=== PATIENT | male | born 1950 | race African-American/Black ===

== ENCOUNTER 2017-06-26 02:53 | Inpatient (IN) | payer MEDICARE, OTHER ==
[2017-06-26 04:02] LABS: #Eosinphils 0.1 thou/uL (0.0-0.7); #Lymphocytes 1.2 thou/uL (1.20-3.40); #Monocytes 0.5 thou/uL (0.11-0.59); #Neutrophils 5.2 thou/uL (1.40-6.50); %Basophils 0.2 % (0.0-1.0); %Eosinophils 1.1 % (0.0-10.0); %Lymphocytes 17.6 % (21.0-51.0); %Monocytes 6.9 % (0.0-10.0); %Neutrophils 74.2 % (42.0-75.0); Hemoglobin 7.7 g/dL (14.0-18.0); Mean Corpuscular HGB CONC 33.3 g/dL (32.0-36.0); Mean Corpuscular Hemoglobin 27.7 pg (27.0-31.0); Mean Corpuscular Volume 83.4 fl (80.0-94.0); Mean Platelet Volume 6.2 fL (7.4-10.4); Platelet Count 260 thou/uL (130-400); RBC Distribution Width 11.8 % (11.5-14.5); Red Blood Cell (RBC) Count 2.78 mill/uL (4.70-6.10)
[2017-06-26 04:10] LABS: INR-International Normal Ratio 1.2; PTT 28.8 SEC (22.9-36.1); Prothrombin Time 15.5 SEC (12.0-14.7)
[2017-06-26 04:24] LABS: ALT (SGPT) 17 U/L (8-55); AST (SGOT) 25 U/L (5-34); Albumin 2.8 g/dL (3.4-4.8); Alkaline Phosphatase 34 U/L (40-150); Anion Gap 12 mmol/L (10-20); BUN (Urea Nitrogen) 36 mg/dL (8.4-25.7); Bilirubin, Total 0.3 mg/dL (0.2-1.2); Calc. Creatinine Clearance 0 mL/min (70-130); Calcium 8.5 mg/dL (7.8-10.44); Carbon Dioxide 25 mmol/L (23-31); Chloride 106 mmol/L (98-107); Estimated GFR-MDRD 58; Globulin 2.6 g/dL (2.4-3.5); Glucose 182 mg/dL (80-115); Potassium 4.2 mmol/L (3.5-5.1); Protein, Total 5.4 g/dL (5.8-8.1); Sodium 139 mmol/L (136-145)
[2017-06-26] MEDS ORDERED: Lidocaine 1% w/Epinephrine 1:100K 20 ML VIAL ONE (04:45)
[2017-06-26 05:27] LABS: CKMB 2.2 ng/mL (0-6.6); Troponin I 0.025 ng/mL (< 0.028)
[2017-06-26] MEDS ORDERED: Ondansetron ODT 4 MG TAB SL PRN (06:55)
[2017-06-26] MEDS ORDERED: Acetaminophen 325 MG TAB PO PRN ×2 (06:55→07:10)
[2017-06-26] MEDS ORDERED: Ondansetron HCl/PF 4 MG/2 ML Vial IVP PRN ×2 (06:55→07:10)
[2017-06-26] MEDS ORDERED: traMADol HCl 50 MG TAB PO PRN (07:10)
[2017-06-26] MEDS ORDERED: Benzonatate 100 MG CAP PO PRN (07:10)
[2017-06-26] MEDS ORDERED: Dextrose 50% Abboject 50 ML SYRINGE SLOW IVP PRN (07:10)
[2017-06-26] MEDS ORDERED: Senokot 8.6 MG TAB PO PRN ×2 (07:10)
[2017-06-26] MEDS ORDERED: Bisacodyl 5 MG TAB PO PRN ×2 (07:10)
[2017-06-26] MEDS ORDERED: Mag-Al 1200 mg/1200 mg/30 ML UDCUP PO PRN (07:10)
[2017-06-26] MEDS ORDERED: Calcium Carbonate 500 MG ChewTAB PO PRN (07:10)
[2017-06-26] MEDS ORDERED: HumaLOG 300 UNITS/3 ML VIAL SC PRN (07:10)
[2017-06-26] MEDS ORDERED: Loratadine 10 MG TAB PO PRN (07:10)
[2017-06-26] MEDS ORDERED: Diabetic Tussin 200 MG/10 ML UDCUP PO PRN (07:10)
[2017-06-26] MEDS ORDERED: Nitroglycerin 0.4 MG TAB (25 Tab Bottle) SL PRN (07:10)
[2017-06-26] MEDS ORDERED: Dextrose 5% in Water 1,000 ML IV PRN (07:10)
[2017-06-26] MEDS ORDERED: Sodium Chloride 0.9% 1,000 ML IV SCH (07:15)
[2017-06-26 07:36] LABS: Troponin I 0.027 ng/mL (< 0.028)
--- NOTE | 2017-06-26 08:34 | CT ---
PRELIMINARY REPORT/[facility]/EMERGENTY AFTER-HOURS PROCEDURE CT Cervical Spine Without Intravenous Contrast CLINICAL HISTORY: 67 years old, male; Injury or trauma; Fall; Initial encounter; Concussion /head injury; Patient HX: E ms reports patient called due to bleeding from mouth. Pt was evasive in saying how he was bleeding fr om the mouth. Pt then said he possibly fell. Ems reports "copious amount of blood loss". Filled o f milk jug full. Pt then says he fell 3 days ago. Pt denies bleeding disorder/blood thinner. Unk loc. Hypotensive(94/50) for ems. Pt has syncopal episode for ems. Loc for about 1.5 min. 167 dstick. Pt d rowsy-ems reports took klonopin. TECHNIQUE: Axial computed tomography images of the cervical spine without intravenous contrast. Coronal reformat maral images were created and reviewed. COMPARISON: No relevant prior studies available. FINDINGS: On axial CT images, no definite acute fracture is visible. Sagittal and coronal reconstructions show no fracture or subluxation. Mild to moderate degenerative disc changes and facet joint arthritis at multiple levels. No definite/ significant disc herniation by CT, MRI could be more sensitive if clinically indicated. IMPRESSION: No definite acute fracture or subluxation by CT. Other findings discussed above. Thank you for allowing us to participate in the care of your patient. Dictated and Authenticated by: Andre Shah MD 06/26/2017 4:11 AM Central Time ([place] & [place]) FINAL REPORT CT CERVICAL SPINE: HISTORY: Fall, neck pain. FINDINGS: Final report. Preliminary exam was performed by [facility]. I concur with the dictation from [facility]. CT images cervical spine demonstrate disk space height loss with anterior and posterior osteophytes involving the entire cervical spine. No evidence of acute cervical spine fracture is seen. The central canal is patent. IMPRESSION: No evidence of acute cervical spine pathology. No significant evidence of subluxation seen. POS: [facility]
--- NOTE | 2017-06-26 08:52 | CT ---
PRELIMINARY REPORT/[facility]/EMERGENTY AFTER-HOURS PROCEDURE CT Head Without Intravenous Contrast CLINICAL HISTORY: 67 years old, male; Injury or trauma; Fall; Initial encounter; Concussion / head injury; Patient HX: Ems reports patient called due to bleeding from mouth. Pt was evasive in saying how he was bleeding f rom the mouth. Pt then said he possibly fell. Ems reports "copious amount of blood loss". Filled 1/2 of milk jug full. Pt then says he fell 3 days ago. Pt denies bleeding disorder/blood thinn er. Unk loc. Hypotensive(94/50) for ems. Pt has syncopal episode for ems. Loc for about 1.5 min. 167 dstick. Pt drowsy-ems reports took klonopin. TECHNIQUE: Axial computed tomography images of the head/brain without intravenous contrast. COMPARISON: No relevant prior studies available. FINDINGS: No definite acute skull fracture. Included paranasal sinuses are essentially clear. No acute intracranial hemorrhage or mass effect. Ventricle size is normal for age. Vascular calcifications noted in the internal carotid and vertebral basilar systems. There is decreased attenuation in the periventricular white matter, likely from microvascular disease . There are small old lacunar infarcts in the right basal ganglia region. Additional old infarct in the high right posterior parietal/occipital region. No definite acute infarct by CT. MRI could be more sensitive/specific for an acute infarct if clinically indicated. IMPRESSION: No acute intracranial bleed or mass effect. Changes of microvascular disease, and old infarcts, details above. No definite acute infarct by CT, see above. Thank you for allowing us to participate in the care of your patient. Dictated and Authenticated by: Andre Shah MD 06/26/2017 4:08 AM Central Time ([place] & [place]) FINAL REPORT CT BRAIN: HISTORY: Trauma. History of fall. FINDINGS: Noncontrast-enhanced CT images brain obtained. Comparison is made to a previous exam from 05/06/16. Final report. Preliminary exam was performed by [facility]. CT images brain demonstrate no evidence of acute intracranial masses, hemorrhages, strokes, or contus ions. Deep white matter ischemic change is seen. Areas of old infarction seen in the right parietal lobe. IMPRESSION: No evidence of acute intracranial pathology is seen. POS: [facility]
[2017-06-26] MEDS: HumaLOG 300 UNITS/3 ML VIAL SC PRN ×2 (09:13→12:06)
[2017-06-26 10:24] LABS: Hemoglobin 7.5 g/dL (14.0-18.0)
[2017-06-26 10:40] LABS: Bilirubin Negative (Negative); Blood, Urine Negative (Negative); Clarity CLEAR (Clear); Glucose, Urine (Dipstick) Negative (Negative); Leukocyte Small (Negative); Nitrite Positive (Negative); Protein, Urine (Dipstick) 100 mg/dL (Neg-Trace); Specific Gravity, Urine 1.021 (1.002-1.036); Urobilinogen 0.2 mg/dL (0.2-1.0); pH, Urine 5.5 (5.0-9.0)
[2017-06-26 10:41] LABS: Hyaline Casts/LPF 0-3 HYALINE CAST LPF (0-3 Hyaline); Pathc Cast-AUWi Flag 0.29 (0-2.49); RBC/HPF 0-3 HPF (0-3); Squamous Epithelial None Seen HPF (0-3)
[2017-06-26 10:43] LABS: Amphetamine Not Detected (NotDetected); Benzodiazepine Screen Not Detected (NotDetected); Cocaine Metabolite Screen Detected (NotDetected); Medtox Reader # READER 1; Methamphetamine Not Detected (NotDetected); Opiate Screen Not Detected (NotDetected); Phencyclidine (PCP) Not Detected (NotDetected); THC/Cannabinoid Screen Not Detected (NotDetected); Tricyclic Screen Not Detected (NotDetected)
[2017-06-26 10:44] LABS: Barbiturates Screen Not Detected (NotDetected); Medtox Control Line Valid? VALID (VALID); Methadone Not Detected (NotDetected); Oxycodone Screen Not Detected (NotDetected)
[2017-06-26 10:47] LABS: Troponin I 0.018 ng/mL (< 0.028)
--- NOTE | 2017-06-26 10:54 | HP ---
DATE OF ADMISSION: 06/26/2017 PRIMARY CARE PHYSICIAN: Jay Lane D.O. CHIEF COMPLAINT: Fall and bleeding. HISTORY OF PRESENTING ILLNESS: Mr. Andrews is a 67-year-old -Monegasque male with past medical h istory of diabetes and hypertension as well as chronic hepatitis C and chronic kidney disease who pre sented to the emergency room with above-mentioned complaint. History is mainly obtained by the patie bhanu himself, who was somewhat of a poor historian. Electronic medical records have been reviewed. The patient was last admitted to our facility in April 2016 after a syncopal episode and had kevon p including carotid Doppler ultrasound, transthoracic echocardiogram, and MRI of the brain. All of t his workup was unremarkable. At that time, he was taken off of his atenolol due to excessive beta bl ockade. Last night, he was brought in by EMS. He apparently had fallen down at home and was unable to get up for quite a long time and started to bleed heavily from the right bottom lip. Eventually, when he c alled EMS, he has lost a lot of blood. He was brought into the emergency room and was hemodynamicall y stable. He required suturing of his lip and then he stopped bleeding. His hemoglobin was found to be 7.7, which is down from 11.6 last year. He was very sleepy as he told the emergency room physici an that he has taken some Klonopin at home. He was not able to corroborate most of this story. He r eports that he has no real memory of the events that happened yesterday. When I asked if he has passed out, he said yes, but he said that he passed out when the EMS was there . He does not really remember how did he fall or if he had any syncopal episode prior to falling. O therwise, he denies any other recent illnesses. He did have one glass of alcoholic drink yesterday b efore all of this happened. He denies any drug abuse. In the emergency room, he underwent a CT scan of the brain and cervical spine and both were unremarka ble for any acute changes. His lab work was essentially unremarkable except for anemia. He is now b eing admitted for further evaluation and workup for syncopal episode. At the time of my evaluation, he is awake, alert, oriented x3, and is actually making jokes with me. PAST MEDICAL HISTORY: 1. Diabetes mellitus type 2. 2. Hypertension. 3. History of hepatitis. 4. Chronic hepatitis C. 5. Chronic kidney disease. PAST SURGICAL HISTORY: Cataract removal bilaterally. ALLERGIES: No known medication allergies. FAMILY HISTORY: Significant for kidney disease and diabetes. SOCIAL HISTORY: He lives alone and is able to take care of himself. His meals are being delivered b y [employer] and he has some help at home with the [employer]. He denies any drug abuse and d rinks alcohol minimally and he smokes cigarettes intermittently. MEDICATIONS: Unable to update. The patient reports compliance. REVIEW OF SYSTEMS: The following complete review of systems was negative, unless otherwise mentioned in the HPI or below: Constitutional: Weight loss or gain, ability to conduct usual activities. Skin: Rash, itching. Eyes: Double vision, pain. ENT/Mouth: Nose bleeding, neck stiffness, pain, tenderness. Cardiovascular: Palpitations, dyspnea on exertion, orthopnea. Respiratory: Shortness of breath, wheezing, cough, hemoptysis, fever or night sweats. Gastrointestinal: Poor appetite, abdominal pain, heartburn, nausea, vomiting, constipation, or diarr hea. Genitourinary: Urgency, frequency, dysuria, nocturia. Musculoskeletal: Pain, swelling. Neurologic/Psychiatric: Anxiety, depression. Allergy/Immunologic: Skin rash, bleeding tendency. It is negative except for those mentioned in the history and physical. PHYSICAL EXAMINATION: VITAL SIGNS: Upon presentation, heart rate 75, respirations 16, temperature 98.5, saturating 94% on room air, and blood pressure 112/63. GENERAL: No acute distress. He is awake, alert, and oriented x3. He does appear ill kempt, but wel l nourished. He has dried blood all over his hands and his upper body. HEENT: Mucous membrane is moist and pink. No oropharyngeal exudate or erythema. Head is normocepha lic, atraumatic. Pupils are equal, reactive to light and accommodation. Extraocular movement is int act. NECK: Supple without any lymphadenopathy, JVD or bruit. CHEST: Clear to auscultation without any wheezing, rales or rhonchi. CARDIOVASCULAR: Rhythm is regular without any murmur, rubs or gallops. ABDOMEN: Soft, nontender, nondistended with positive bowel sounds. EXTREMITIES: Free of any cyanosis, clubbing, or edema. NEUROLOGIC: Examination is nonfocal. SKIN: Free of any rashes or bruises. I feel warm and dry to touch. PSYCHIATRIC: Normal affect. IMAGING DATA AND LABORATORY DATA: A 12-lead EKG by my review shows frequent PACs with sinus rhythm a t 78 beats per minute, prolonged QT interval. CT scan of the brain by my review has no evidence to s uggest any hemorrhage or infarction. CT scan of the cervical spine is unremarkable for any acute fra ctures. CBC shows hemoglobin 7.7 with repeat hemoglobin of 7.5. Coagulation studies are unremarkabl e. Serum chemistry showed BUN of 36, creatinine of 1.46 with estimated GFR of 58, which seems to be at baseline with blood sugar of 182. Troponins then trended and are negative so far x2. Plasma alco hol level less than 10. Urine drug screen and urinalysis is pending as ordered by myself. IMPRESSION AND PLAN: 1. Acute blood loss anemia. The patient is quite anemic and seems to have lost a lot of blood. He is however at this time hemodynamically stable. He was hypotensive upon presentation, but his curren t blood pressure is 127/61. At this time, we will hold off on the transfusion and continue to monito r hemoglobin and hematocrit every 6 hours or so. If it is less than 7, we will start transfusing. Richmond mann is not on any blood thinners and the reason of the bleeding was a fall. This has been stopped by t cas suturing of his lip. 2. Possible syncope. It is unclear if he actually lost consciousness or not. He has had thorough w orkup done one year ago. At this time, we will start him on some gentle IV fluid hydration and check orthostatics and monitor his rhythm on the telemetry monitoring. He does have some history of PVCs. Also check drug screen as above. No clear etiology of his syncope is noticed. His carotid Doppler ultrasound as well as transthoracic echocardiogram done on 04/2016 was within normal limit. 3. Diabetes mellitus. We will start him on insulin sliding scale and try to confirm his home medica tions. Diabetic diet as required. 4. History of hypertension. His home medications are not reconciled as of now. We will try to rest art them if his blood pressure supports. Use p.r.n. antihypertensives for now. 5. History of chronic hepatitis C. The patient does not have any followup done, but his liver enzym es are unremarkable at this time. He does not seem to have any hemodynamic instability because of th is. This can be followed in the outpatient setting. 5. Code status: FULL CODE. DISPOSITION: Mr. Andrews is currently being admitted for acute blood loss anemia and workup for synco pe. Further management will depend upon his clinical course. Estimated length of stay is at least 2 -3 midnights.
[2017-06-26 11:06] LABS: Yeast-AUWi Flag 25.4 (0-25.0)
[2017-06-26 11:14] LABS: Bacteria/HPF Rare-Few HPF (None Seen); Yeast-All Forms None Seen HPF (None Seen)
[2017-06-26 15:28] LABS: Hemoglobin 7.2 g/dL (14.0-18.0)
[2017-06-26] MEDS: hydrALAZINE 20 MG/ML VIAL SLOW IVP PRN (16:56)
[2017-06-26] MEDS ORDERED: Carvedilol 25 MG TAB PO SCH (18:45)
[2017-06-26] MEDS: metFORMIN 500 MG TAB PO SCH (18:51)
[2017-06-26] MEDS: Lisinopril 10 MG TAB PO SCH (21:42)
[2017-06-27 05:35] LABS: Anion Gap 11 mmol/L (10-20); BUN (Urea Nitrogen) 38 mg/dL (8.4-25.7); Calc. Creatinine Clearance 0 mL/min (70-130); Calcium 8.4 mg/dL (7.8-10.44); Carbon Dioxide 22 mmol/L (23-31); Chloride 110 mmol/L (98-107); Estimated GFR-MDRD 71; Glucose 93 mg/dL (80-115); Potassium 3.7 mmol/L (3.5-5.1); Sodium 139 mmol/L (136-145)
[2017-06-27 06:14] LABS: Eosinophils 3 % (0-10); Hemoglobin 7.9 g/dL (14.0-18.0); Lymphocytes 29 % (21-51); MDiff Complete? YES; Mean Corpuscular HGB CONC 33.6 g/dL (32.0-36.0); Mean Corpuscular Hemoglobin 28.7 pg (27.0-31.0); Mean Corpuscular Volume 85.4 fl (80.0-94.0); Mean Platelet Volume 6.8 fL (7.4-10.4); Monocytes 9 % (0-10); Neutrophil 58 % (42-75); Platelet Count 245 thou/uL (130-400); RBC Distribution Width 12.1 % (11.5-14.5); Reactive Lymphocytes 1 % (0-10); Red Blood Cell (RBC) Count 2.75 mill/uL (4.70-6.10); White Blood Cell (WBC) Count 7.3 thou/uL (4.8-10.8)
[2017-06-27] MEDS ORDERED: cefTRIAXone\\ROCEPHIN 1 GM in Sodium Chloride 0.9% 100 ML IVPB SCH (07:45)
[2017-06-27] MEDS: Carvedilol 25 MG TAB PO SCH ×2 (09:03→21:22)
[2017-06-27] MEDS: Lisinopril 10 MG TAB PO SCH ×2 (09:03→21:20)
[2017-06-27] MEDS: metFORMIN 500 MG TAB PO SCH ×2 (09:03→17:02)
[2017-06-27] MEDS: cefTRIAXone\\ROCEPHIN 1 GM, Syringe 0.4 ML in Sterile Water 9.6 ML SLOW IVP SCH (10:20)
--- NOTE | 2017-06-27 11:32 | PDOC.PN ---
- Subjective Encounter Start Date: 06/27/17 Encounter Start Time: 11:30 Subjective: feels much better today.walked w PT.somewhat dizzy w ambulation -: no CP/palpitations/muscle weakness - Objective MAR Reviewed: Yes Vital Signs & Weight: Vital Signs (12 hours) Temp Pulse Resp BP BP BP Pulse Ox 06/27/17 09:00 98.4 F 77 16 182/81 H 97 06/27/17 04:00 98.5 F 81 18 169/83 H 96 06/27/17 00:00 99.1 F 78 18 139/66 139/66 96 Weight Weight 5.552 oz Most Recent Monitor Data Heart Rate from ECG 84 NIBP 158/74 I&O: 06/26/17 06/27/17 06/28/17 06:59 06:59 06:59 Intake Total 1723 Output Total 1175 Balance 548 Result Diagrams: 06/27/17 04:26 06/27/17 04:26 Additional Labs: Accuchecks 06/27/17 06/26/17 06/26/17 06:05 20:40 16:24 POC Glucose 113 H 167 H 123 H 06/26/17 11:36 POC Glucose 163 H Laboratory Tests 06/26/17 06/27/17 03:25 04:26 Creatinine 1.46 H 1.22 Radiology Reviewed by me: Yes EKG Reviewed by me: Yes (NSR on tele) Phys Exam - Physical Examination Constitutional: NAD HEENT: PERRLA, moist MMs, sclera anicteric, oral pharynx no lesions Neck: no nodes, no JVD, supple, full ROM Respiratory: no wheezing, no rales, no rhonchi, clear to auscultation bilateral Cardiovascular: RRR, no significant murmur Gastrointestinal: soft, non-tender, no distention, positive bowel sounds Musculoskeletal: no edema, pulses present Neurological: non-focal, normal sensation, moves all 4 limbs Psychiatric: normal affect, A&O x 3 Skin: no rash Dx/Plan (1) Acute blood loss anemia Code(s): D62 - ACUTE POSTHEMORRHAGIC ANEMIA Status: Acute Comment: s/p 1 unit PRBC 06/26/17 (2) UTI (urinary tract infection) Status: Acute (3) Orthostatic hypotension Code(s): I95.1 - ORTHOSTATIC HYPOTENSION Status: Acute (4) HTN (hypertension) Code(s): I10 - ESSENTIAL (PRIMARY) HYPERTENSION Status: Acute (5) Syncope Code(s): R55 - SYNCOPE AND COLLAPSE Status: Suspected (6) Cocaine abuse Code(s): F14.10 - COCAINE ABUSE, UNCOMPLICATED Status: Chronic (7) CKD (chronic kidney disease), stage III Status: Chronic (8) Type 2 diabetes mellitus Status: Chronic - Plan out of bed/ambulate, DVT proph w/SCDs send urine for Cx. add empiric IV ABx. -: BP was high & home meds restarted.IVF Dced -: H/H stable for now post transfusion -: discussed cocaine .harmful w use of BB.pt receptive -: bradford MARTINES home tomorrow * . Review of Systems - Review of Systems Constitutional: weakness, malaise. negative: fever, chills, sweats, other ENT: negative: Ear Pain, Ear Discharge, Nose Pain, Nose Discharge, Nose Congestion, Mouth Pain, Mouth Swelling, Throat Pain, Throat Swelling, Other Respiratory: negative: Cough, Dry, Shortness of Breath, Hemoptysis, SOB with Excertion, Pleuritic Pain, Sputum, Wheezing Cardiovascular: negative: chest pain, palpitations, orthopnea, paroxysmal nocturnal dyspnea, edema, light headedness, other Gastrointestinal: negative: Nausea, Vomiting, Abdominal Pain, Diarrhea, Constipation, Melena, Hematochezia, Other Genitourinary: negative: Dysuria, Frequency, Incontinence, Hematuria, Retention , Other Musculoskeletal: negative: Neck Pain, Shoulder Pain, Arm Pain, Back Pain, Hand Pain, Leg Pain, Foot Pain, Other Skin: negative: Rash, Lesions, Nilo, Bruising, Other Neurological: negative: Weakness, Numbness, Incoordination, Change in Speech, Confusion, Seizures, Other - Medications/Allergies Allergies/Adverse Reactions: Allergies Allergy/AdvReac Type Severity Reaction Status Date / Time No Known Allergies Allergy Verified 05/07/16 11:33 Medications: Current Medications Acetaminophen (Tylenol) 650 mg PO Q4H PRN PRN Reason: Headache/Fever or Pain Al Hydroxide/Mg Hydroxide (Maalox) 30 ml PO Q6H PRN PRN Reason: Heartburn or Indigestion Benzonatate (Tessalon) 100 mg PO Q4H PRN PRN Reason: Cough Bisacodyl (Dulcolax) 10 mg PO DAILYPRN PRN PRN Reason: Constipation Calcium Carbonate (Tums) 1,000 mg PO Q4H PRN PRN Reason: Heartburn or Indigestion Carvedilol (Coreg) 25 mg PO BID REPLACED BY [facility] Last Admin: 06/27/17 09:03 Dose: 25 mg Dextrose/Water (Dextrose 50%) 25 gm SLOW IVP PRN PRN PRN Reason: Hypoglycemia Glucagon (Glucagon) 1 mg IM PRN PRN PRN Reason: Hypoglycemia Guaifenesin (Robitussin Sf) 200 mg PO Q4H PRN PRN Reason: Cough Hydralazine HCl (Apresoline) 10 mg SLOW IVP Q4H PRN PRN Reason: Systolic BP > 170 Last Admin: 06/26/17 16:56 Dose: 10 mg Dextrose/Water (D5w) 1,000 mls @ 0 mls/hr IV .Q0M PRN; As Directed PRN Reason: Hypoglycemia Ceftriaxone Sodium 1 gm/ (Sodium Chloride) 100 mls @ 200 mls/hr IVPB Q24HR REPLACED BY [facility] Last Admin: 06/27/17 08:55 Dose: Not Given Ceftriaxone Sodium 1 gm/ (Syringe 0.4 ml/ Sterile Water) 10 mls @ 120 mls/hr SLOW IVP Q24HR REPLACED BY [facility] Last Admin: 06/27/17 10:20 Dose: 10 mls Insulin Human Lispro (Humalog) 0 units SC .MILD SLIDING SCALE PRN PRN Reason: Mild Correctional Scale Last Admin: 06/26/17 12:06 Dose: 2 unit Insulin Human Lispro (Humalog) 0 units SC .BEDTIME SLIDING SC PRN PRN Reason: Bedtime Correctional Scale Lisinopril (Zestril) 10 mg PO BID REPLACED BY [facility] Last Admin: 06/27/17 09:03 Dose: 10 mg Loratadine (Claritin) 10 mg PO DAILYPRN PRN PRN Reason: Sinus Symptoms Metformin [facility] (Glucophage) [facility] Last Admin: 06/27/17 09:03 Dose: 1,000 mg Nitroglycerin (Nitrostat) 0.4 mg SL Q5MIN PRN PRN Reason: Chest Pain Ondansetron HCl (Zofran) 4 mg IVP Q6H PRN PRN Reason: Nausea/Vomiting Senna (Senokot) 2 tab PO HSPRN PRN PRN Reason: Constipation Sodium Chloride (Flush - Normal Saline) 10 ml IVF PRN PRN PRN Reason: Saline Flush Tramadol HCl (Ultram) 50 mg PO Q4H PRN PRN Reason: Moderate Pain (4-6)
[2017-06-27] MEDS: hydrALAZINE 20 MG/ML VIAL SLOW IVP PRN (15:28)
[2017-06-28 05:46] LABS: Hemoglobin 7.9 g/dL (14.0-18.0)
[2017-06-28 05:50] VITALS: BMI 23.4
[2017-06-28] MEDS: metFORMIN 500 MG TAB PO SCH (08:19)
[2017-06-28] MEDS: Lisinopril 10 MG TAB PO SCH (08:20)
[2017-06-28] MEDS: Carvedilol 25 MG TAB PO SCH (08:20)
[2017-06-28] MEDS ORDERED: Sodium Chloride 0.9% 1,000 ML IV SCH (08:45)
[2017-06-28] MEDS: cefTRIAXone\\ROCEPHIN 1 GM, Syringe 0.4 ML in Sterile Water 9.6 ML SLOW IVP SCH (10:07)
[2017-06-28 11:38] VITALS: TEMP 97.4
--- NOTE | 2017-06-28 12:22 | DIS ---
DATE OF ADMISSION: 06/26/2017 DATE OF DISCHARGE: 06/28/2017 PRIMARY CARE PHYSICIAN: Jay Lane D.O. DISCHARGE DISPOSITION: Home. DISCHARGE DIAGNOSES: 1. Orthostatic hypotension. 2. Acute blood loss anemia secondary to fall. 3. Urinary tract infection. 4. Cocaine abuse. 5. History of chronic hepatitis C. 6. Diabetes mellitus type 2. 7. Hypertension. 8. Chronic kidney disease. PROCEDURES DONE IN THE HOSPITAL: Include CT scan of the brain and cervical spine, which are unremark able. DISCHARGE MEDICATIONS: New medication, ferrous sulfate 325 mg p.o. b.i.d., Omnicef 300 mg p.o. b.i.d . for 7 more days. NEW MEDICATIONS: Toprol-XL 25 mg at bedtime and Florastor 250 mg daily for 7 more days. DISCONTINUED MEDICATION: Atenolol twice a day. CONTINUED MEDICATIONS: Lisinopril 10 mg p.o. b.i.d., metformin 1000 mg p.o. b.i.d. Please note that the patient was given option for outpatient rehabilitation versus home health and at this time he declined both of them. HISTORY OF PRESENTING ILLNESS: Mr. Andrews is a 67-year-old -[place]ian male with history of andrea betes, hypertension, chronic kidney disease, and chronic hepatitis C who presented to emergency room after he has fallen and was bleeding and called EMS. Upon presentation, he was found to have acute b lood loss anemia. He required sutures on his lower lip where he was bleeding from. Please see admis isa history and physical for further detail. He was otherwise hemodynamically stable. HOSPITAL COURSE: The patient's hemoglobin was trended and he has significant drop in his hemoglobin from 10 to 7 and it steadily worsened slowly. Because of this, he was transfused 1 unit of packed RB Cs and started on ferrous sulfate. His bleeding has been stopped before his admission in the emergen cy room. He was found to be quite orthostatic while in the hospital. He was resuscitated with IV fluids and P RBCs. He was also found to have urinalysis consistent with UTI. Cultures were sent and were pending at the time of discharge. He was started on IV antibiotic and later changed to oral antibiotic at t he time of discharge. Because of orthostatic hypotension despite IV fluids, it was decided that he will stop his atenolol a nd was changed to Toprol-XL and he was instructed to take it towards the end of the day. He was inst ructed to not get up too quickly and was seen by physical therapy for education about the same. He w as provided with SARAH hose to wear during the daytime and take them off at nighttime. He was taught t abdirizak to combat orthostatic hypotension by sitting up and standing up slowly. He is also instruc sarah to follow with his primary care physician with regards to the follow up for all of this. Medicat ion adjustments were made as above. He was taken off of his atenolol which he takes twice a day to o nce a day Toprol XL that he is instructed to take towards the end of the day before going to bed to p revent dizziness in the daytime. He is also instructed to use urinal in bed in the middle of night a nd not get up during the night time. By the time of discharge, he is stable and eager to go home. He was seen and examined prior to disch arge. PHYSICAL EXAMINATION: VITAL SIGNS: Include temperature 98.2, pulse of 74, respirations 16, saturating 97% on room air, blo od pressure 141/66. GENERAL APPEARANCE: No acute distress, awake, alert, oriented x3. CHEST: Clear to auscultation without any wheezing, rales or rhonchi. Rhythm is regular without any murmur, rubs or gallops. The patient was counseled against cocaine abuse. He seemed receptive at this time. At this time, he will be discharged home as he has refused outpatient rehabilitation for dizzy and balance program [facility]. Total time spent 32 minutes including [id number] interaction with the patient and discussion of dis charge plan with patient and his nurse.
[2017-06-28 14:18] VITALS: BP 191/93
[2017-06-28] MEDS ORDERED: Ferrous Sulfate 325 MG TAB PO SCH (17:00)
== END 2017-06-28 13:57 | disposition home or self-care (01) | DRG 812 ==
LOC: ERS 02:53 → 2NO 05:29
PROVIDERS: ADMIT Internal Medicine; ATTEND Internal Medicine
PROC: 30233N1 Transfusion of Nonautologous Red Blood Cells into Peripheral Vein, Percutaneous Approach (ICD-10-PCS; principal; 2017-06-26)
PROC: 0HQ1XZZ Repair Face Skin, External Approach (ICD-10-PCS; 2017-06-26)
DX: D62 Acute posthemorrhagic anemia (principal); E11.22 Type 2 diabetes mellitus with diabetic chronic kidney disease; N39.0 Urinary tract infection, site not specified; B18.2 Chronic viral hepatitis C; N18.9 Chronic kidney disease, unspecified; I12.9 Hypertensive chronic kidney disease with stage 1 through stage 4 chronic kidney disease, or unspecified chronic kidney disease; R55 Syncope and collapse; I95.1 Orthostatic hypotension; F14.10 Cocaine abuse, uncomplicated; W18.30XA Fall on same level, unspecified, initial encounter; S01.511A Laceration without foreign body of lip, initial encounter
CPT/HCPCS: 12011; 36415; 36416; 36430; 70450; 72125; 80048; 80053; 80306; 80307; 81003; 81015; 82553; 84484; 85014; 85018; 85025; 85610; 85730; 86850; 86900; 86901; 87077; 87086; 87186; 93005; A4216; G8978-GP-CK; G8979-GP-CI; J0360; J0696; J2001; J7050; P9016

== ENCOUNTER 2017-06-30 03:07 | Emergency (ER) | payer MEDICARE, OTHER ==
[2017-06-30 03:37] LABS: #Eosinphils 0.3 thou/uL (0.0-0.7); #Monocytes 0.6 thou/uL (0.11-0.59); #Neutrophils 4.5 thou/uL (1.40-6.50); %Basophils 0.6 % (0.0-1.0); %Eosinophils 3.5 % (0.0-10.0); %Lymphocytes 27.6 % (21.0-51.0); %Monocytes 7.4 % (0.0-10.0); %Neutrophils 60.9 % (42.0-75.0); Hemoglobin 7.6 g/dL (14.0-18.0); Mean Corpuscular HGB CONC 32.7 g/dL (32.0-36.0); Mean Corpuscular Volume 85.4 fl (80.0-94.0); Platelet Count 289 thou/uL (130-400); RBC Distribution Width 12.6 % (11.5-14.5); Red Blood Cell (RBC) Count 2.72 mill/uL (4.70-6.10); White Blood Cell (WBC) Count 7.4 thou/uL (4.8-10.8)
== END 2017-06-30 03:51 | disposition home or self-care (01) ==
LOC: ERS 03:07
DX: S01.511D Laceration without foreign body of lip, subsequent encounter (principal); E11.9 Type 2 diabetes mellitus without complications; I10 Essential (primary) hypertension; F17.200 Nicotine dependence, unspecified, uncomplicated; Z79.84 Long term (current) use of oral hypoglycemic drugs; Z79.899 Other long term (current) drug therapy
CPT/HCPCS: 36415; 85025; 99283

== ENCOUNTER 2017-07-04 00:20 | Inpatient (IN) | payer MEDICARE, OTHER ==
[2017-07-04] MEDS ORDERED: Lidocaine 1% w/Epinephrine 1:100K 20 ML VIAL ONE (01:04)
[2017-07-04 01:57] LABS: #Basophils 0.1 thou/uL (0.0-0.2); #Eosinphils 0.2 thou/uL (0.0-0.7); #Monocytes 0.5 thou/uL (0.11-0.59); #Neutrophils 3.1 thou/uL (1.40-6.50); %Eosinophils 2.8 % (0.0-10.0); %Lymphocytes 34.5 % (21.0-51.0); %Monocytes 7.9 % (0.0-10.0); %Neutrophils 53.8 % (42.0-75.0); Hemoglobin 5.6 g/dL (14.0-18.0); Mean Corpuscular HGB CONC 33.8 g/dL (32.0-36.0); Mean Corpuscular Hemoglobin 29.2 pg (27.0-31.0); Mean Corpuscular Volume 86.3 fl (80.0-94.0); Mean Platelet Volume 6.3 fL (7.4-10.4); Platelet Count 303 thou/uL (130-400); RBC Distribution Width 12.8 % (11.5-14.5); White Blood Cell (WBC) Count 5.8 thou/uL (4.8-10.8)
[2017-07-04 02:01] LABS: INR-International Normal Ratio 1.3; PTT 25.9 SEC (22.9-36.1); Prothrombin Time 16.5 SEC (12.0-14.7)
[2017-07-04 02:04] LABS: ALT (SGPT) 14 U/L (8-55); AST (SGOT) 18 U/L (5-34); Albumin 2.6 g/dL (3.4-4.8); Alkaline Phosphatase 28 U/L (40-150); Anion Gap 10 mmol/L (10-20); BUN (Urea Nitrogen) 17 mg/dL (8.4-25.7); Bilirubin, Total 0.3 mg/dL (0.2-1.2); Calc. Creatinine Clearance 0 mL/min (70-130); Calcium 8.2 mg/dL (7.8-10.44); Carbon Dioxide 25 mmol/L (23-31); Chloride 111 mmol/L (98-107); Estimated GFR-MDRD 74; Globulin 2.3 g/dL (2.4-3.5); Glucose 147 mg/dL (80-115); Potassium 3.7 mmol/L (3.5-5.1); Protein, Total 4.9 g/dL (5.8-8.1); Sodium 142 mmol/L (136-145)
--- NOTE | 2017-07-04 04:31 | HP ---
Brian Andrews is a 67-year-old black male who apparently fell, had quite a bit of bleeding from the lip laceration. This lip laceration was closed a few days ago in the emergency room. He had signifi cant blood loss and was hypotensive. He was evaluated in the emergency room by Nurse Doni Oates. His hemoglobin was noted to be in 5.6. He was transfused blood and he has been admitte d overnight. Agreed with assessment by Aide Prather NP. The patient likely would be discharged in the next day o r two. Of note, recent hemoglobin is 7.6. The patient lives alone and there is nobody here to care for him if he would be discharged home.
[2017-07-04] MEDS ORDERED: Insulin Regular 300 UNITS/3 ML VIAL SC PRN (04:36)
[2017-07-04] MEDS ORDERED: Dextrose 5% in Water 1,000 ML IV PRN (04:36)
[2017-07-04] MEDS ORDERED: Dextrose 50% Abboject 50 ML SYRINGE SLOW IVP PRN (04:36)
[2017-07-04] MEDS ORDERED: Sodium Chloride 0.9% 1,000 ML IV SCH (04:36)
--- NOTE | 2017-07-04 05:11 | HP ---
DATE OF ADMISSION: 07/04/2017 REQUESTING PHYSICIAN: Dr. Escobedo, emergency department. ADMITTING PHYSICIAN: Dr. Damon. HISTORY OF PRESENT ILLNESS: Mr. Andrews is a 67-year-old male who has a recent fall resulting in a li p laceration that required sutures. EMS was summoned to patient's home today due to bleeding from th e same laceration. Bleeding was unable to be controlled. He was transported to the emergency depart ment by EMS. Arterial bleeding was noted from lower lip. While in the emergency department, patient had multiple episodes of hypotension requiring fluid resuscitation as well as administration of pack ed red blood cells. Hemoglobin was noted to be 5.6. Trauma was consulted for admission and manageme nt. Lip laceration was closed with sutures by ER physician. PAST MEDICAL HISTORY: 1. Diabetes, type 2. 2. Hypertension. 3. Hepatitis C. 4. Chronic kidney disease. PAST SURGICAL HISTORY: Bilateral cataract removal. ALLERGIES: No known medication allergies. MEDICATIONS: Patient denies compliance with medications. SOCIAL HISTORY: Patient lives alone. He reports multiple recent falls. He denies drug use. He rep orts occasional alcohol intake. He reports occasional smoking cigarettes. LABORATORY DATA: Hematology: WBC 5.8, RBC 1.90, hemoglobin 5.6, hematocrit 16.4, platelets 303. Co agulation: PT 16.5, INR 1.3. Chemistry: Sodium 142, potassium 3.7, chloride 111, carbon dioxide 25 , BUN 17, creatinine 1.18, glucose 147. Alkaline phosphatase 28, total bilirubin 0.3, AST 18, ALT 14 , serum total protein 4.9, albumin 2.6, globulin 2.3. REVIEW OF SYSTEMS: Constitutional: Patient denies weight loss, fever, chills, recent malaise. HEEN T: Patient reports bleeding from mouth after a fall. Cardiovascular: Denies chest pain, syncope, o r palpitations. Respiratory: Denies cough, wheezing. Gastrointestinal: Denies abdominal pain, mick sea, vomiting, diarrhea, or constipation. Musculoskeletal: Negative. Skin: Negative. PHYSICAL EXAMINATION: VITAL SIGNS: Blood pressure 166/88, pulse 73, respirations 16, temperature 97.7, pain 3, O2 sat 96% room air. GENERAL: Elderly male, nontoxic appearing. HEENT: Normocephalic. Bleeding noted from inside of the lower lip. This appears to be arterial ble eding. Bleeding stopped with pressure. RESPIRATORY: Bilateral breath sounds clear. No respiratory distress. CARDIAC: Regular rate and rhythm. Heart sounds normal. ABDOMEN: Soft, nontender, nondistended. NEUROLOGIC: GCS 15. Awake, alert, oriented x3. EXTREMITIES: Moves all extremities well. NEUROLOGIC: Cap refill brisk, 2+ pulses all extremities. PSYCHIATRIC: Normal mood and affect. ASSESSMENT AND PLAN: 1. Status post ground level fall, multiple falls recently. 2. Arterial bleeding from lower lip laceration, repaired in ER with control of bleeding. 3. Noncompliance with medication regimen. 4. Acute blood loss anemia. PLAN: 1. Admit for observation. 2. Serial hemoglobin and hematocrit. Transfuse as indicated. 3. Social work consult for multiple recent falls. 4. PT, OT evaluation. The patient was seen and examined with Dr. Damon who agrees with plan.
[2017-07-04 05:36] LABS: Hemoglobin 7.4 g/dL (14.0-18.0)
[2017-07-04] MEDS: hydrALAZINE 20 MG/ML VIAL SLOW IVP PRN (05:48)
[2017-07-04 06:54] VITALS: BMI 23.3
[2017-07-04] MEDS ORDERED: Artificial Tears 18 DROP/0.9 ML EA EYE PRN (09:13)
[2017-07-04] MEDS ORDERED: Ondansetron HCl/PF 4 MG/2 ML Vial IVP PRN (09:13)
[2017-07-04] MEDS ORDERED: Sodium Chloride 0.65% Nasal 44 ML BOT EA NARE PRN (09:13)
[2017-07-04] MEDS ORDERED: Chloraseptic Spray 180 ml Bottle PO PRN (09:13)
[2017-07-04] MEDS ORDERED: Senokot 8.6 MG TAB PO PRN (09:13)
[2017-07-04] MEDS ORDERED: Diabetic Tussin 200 MG/10 ML UDCUP PO PRN (09:13)
[2017-07-04] MEDS ORDERED: Eucerin (Mineral Oil/Petrolatum,White) 30 gm Jar TOP PRN (09:13)
[2017-07-04] MEDS ORDERED: Milk Of Magnesia 30 ML UDCUP PO PRN (09:13)
[2017-07-04] MEDS ORDERED: Ondansetron ODT 4 MG TAB PO PRN (09:13)
[2017-07-04] MEDS ORDERED: Acetaminophen 325 MG TAB PO PRN (09:13)
[2017-07-04] MEDS ORDERED: Mag-Al 1200 mg/1200 mg/30 ML UDCUP PO PRN (09:13)
[2017-07-04] MEDS ORDERED: Temazepam 15 MG CAP PO PRN (09:13)
[2017-07-04 10:33] LABS: Bilirubin Negative (Negative); Blood, Urine Trace (Negative); Clarity CLEAR (Clear); Glucose, Urine (Dipstick) Negative (Negative); Leukocyte Trace (Negative); Nitrite Negative (Negative); Protein, Urine (Dipstick) 100 mg/dL (Neg-Trace); Specific Gravity, Urine 1.018 (1.002-1.036); Urobilinogen 0.2 mg/dL (0.2-1.0); pH, Urine 5.5 (5.0-9.0)
[2017-07-04 10:34] LABS: Bacteria/HPF None Seen HPF (None Seen); Hyaline Casts/LPF 0-3 HYALINE CAST LPF (0-3 Hyaline); Pathc Cast-AUWi Flag 0.29 (0-2.49); Squamous Epithelial 0-3 HPF (0-3); WBC/HPF 0-3 HPF (0-3)
[2017-07-04 10:46] LABS: Hemoglobin 7.1 g/dL (14.0-18.0)
[2017-07-04 10:54] LABS: Amphetamine Not Detected (NotDetected); Barbiturates Screen Not Detected (NotDetected); Benzodiazepine Screen Not Detected (NotDetected); Cocaine Metabolite Screen Not Detected (NotDetected); Medtox Control Line Valid? VALID (VALID); Medtox Reader # READER 1; Methadone Not Detected (NotDetected); Methamphetamine Not Detected (NotDetected); Opiate Screen Not Detected (NotDetected); Oxycodone Screen Not Detected (NotDetected); Phencyclidine (PCP) Not Detected (NotDetected); THC/Cannabinoid Screen Not Detected (NotDetected); Tricyclic Screen Not Detected (NotDetected)
--- NOTE | 2017-07-04 11:38 | CON ---
PRIMARY CARE PHYSICIAN: Jay Lane D.O. PRIMARY ATTENDING: Dr. Nelson Novak. REASON FOR CONSULTATION: Medical comanagement. HISTORY OF PRESENT ILLNESS: A 67-year-old -[place] male who has underlying history of hypert ension who was brought to emergency room last night with acute arterial bleed in the lower lip which happened after mechanical fall at home. Routine blood tests showed hemoglobin 5.6 and patient is giv en 1 unit of blood transfusion. Subsequently, hemoglobin improved to 7.4 and patient's bleeding was stopped in the emergency room. This patient has frequent falls at home. He was admitted under Family Medicine in 04/2016 for syncop al episode. At that time, patient had full workup including MRI brain, carotid Doppler, echocardiogr aphy which was unremarkable. Subsequently, he was recently admitted on 02/25/2018. At that time, milvia dockery had fall and he was bleeding in his lower lip required suturing and the patient was given blood transfusion and patient was discharged on 06/28/2017. During that admission, CT cervical spine and CT brain was unremarkable. Last night, patient had again episode of fall from standing at home. Etiology of fall was not clear, but patient fell on his face and subsequently he busted inside of his lower lip and he was bleeding heavily when he arrived to ER, he was hypotensive. He was given blood transfusion and subsequently h is bleeding lower lip was repaired. Surgical consult was placed and they admitted this patient under their service during night time. This morning, we are consulted for medical comanagement. Patient's blood pressure is stabilized. Th e patient's bleeding has stopped. The patient has frequent falls and this is third episode of fall w ithin 2 weeks. He was not safe for discharge and now we are consulted for medical comanagement. Patient denies any chest pain, palpitation, dizziness. The patient denies any shortness of breath. He denies any constipation, diarrhea, melena, or UTI symptoms. He was admitted last time. At that t raghavendra he was treated for UTI as well and patient reports that he finished antibiotic therapy and he sam s not have any more UTI symptoms. The patient reports that he lives alone and he does not have anybody to help him out at this point. REVIEW OF SYSTEMS: The following complete review of systems was negative, unless otherwise mentioned in the HPI or below: Constitutional: Weight loss or gain, ability to conduct usual activities. Skin: Rash, itching. Eyes: Double vision, pain. ENT/Mouth: Nose bleeding, neck stiffness, pain, tenderness. Cardiovascular: Palpitations, dyspnea on exertion, orthopnea. Respiratory: Shortness of breath, wheezing, cough, hemoptysis, fever or night sweats. Gastrointestinal: Poor appetite, abdominal pain, heartburn, nausea, vomiting, constipation, or diarr hea. Genitourinary: Urgency, frequency, dysuria, nocturia. Musculoskeletal: Pain, swelling. Neurologic/Psychiatric: Anxiety, depression. Allergy/Immunologic: Skin rash, bleeding tendency. Please see my HPI for pertinent positive and negative. All other review of systems reviewed and nega tive except as mentioned in the HPI. PAST MEDICAL HISTORY: Diabetes type 2, hypertension, chronic hepatitis C, chronic kidney disease sta ge 2, recent history of fall as well as frequent falls and required suturing of laceration of lower l ip, recent history of UTI, history of cocaine abuse in the past. PAST PSYCHIATRY HISTORY: Reviewed and negative. PAST SURGICAL HISTORY: Cataract surgery bilaterally, lower lip laceration repaired in the emergency room. ALLERGIES: No known drug allergy. FAMILY HISTORY: Diabetes, hypertension, kidney disease runs among several family members. SOCIAL HISTORY: Patient lives alone. He does not have anybody to help him out. He is able to do hi s daily routine activities by himself. He falls frequently at home. He gets some help from [email or web address]. Currently, he denies any smoking, alcohol or other illicit drug abuse, but he smokes very sona le amount and drinks alcohol very occasionally. CURRENT HOME MEDICATIONS: The patient was discharged home on following medications, Omnicef 300 mg t wice daily, ferrous sulfate 325 mg p.o. b.i.d., lisinopril 10 mg p.o. b.i.d., metformin 1000 mg p.o. b.i.d., Toprol-XL 25 mg p.o. daily, and Florastor 250 mg p.o. daily. HOSPITAL COURSE: Reviewed. PHYSICAL EXAMINATION: VITAL SIGNS: Currently, temperature 98.4, pulse 72, respiratory rate 16, saturation 99% on room air, blood pressure 148/81, pulse 72, weight 158. GENERAL: Patient is currently alert, awake, no obvious acute distress. HEAD: Normocephalic, atraumatic. EYES: Pupils round, reactive to light. Extraocular muscle intact. ENT: Lower lip surgically repaired without any active bleeding. NECK: Supple, no JVD, no thyromegaly, no carotid bruit, no jugular venous distention. LUNGS: Clear to auscultation without any rhonchi or rales. CARDIAC: S1 and S2 regular. No murmur, no gallop, no rub. ABDOMEN: Soft, bowel sounds present, nontender, nondistended. No organomegaly, no mass, no suprapub ic tenderness. BACK: Examination unremarkable, no CVA tenderness. EXTREMITIES: Upper extremity passive movements of all joints are normal. Lower extremity passive mo vements of all joints are normal. NEUROLOGIC: Patient is alert and oriented. Cranial nerves II-XII intact. Motor and sensation withi n normal limits noted. Reflexes symmetrical. No cerebellar sign. Plantar bilateral flexor. PSYCHIATRIC: Normal affect. SIGNIFICANT LABORATORY DATA AND IMAGING DATA: 1. CBC: WBC 5.8, hemoglobin 5.6 on admission and subsequently 7.4, platelets 303. INR 1.3. 2. BMP: Sodium 142, potassium 3.7, chloride 111, carbon dioxide 25, anion gap 10, BUN 17, creatinin e 1.18, glucose 147, calcium 8.2. 3. LFT: AST 18, ALT 14, alkaline phosphatase 28, albumin 2.6. 4. Urinalysis: Leukocyte esterase trace. Blood trace, protein 100, urine drug screen negative for any acute process. Urine culture sent. 5. Old medical record reviewed. ASSESSMENT AND PLAN: 1. Mechanical fall and landed on face and subsequently arterial bleeding from lower lip which was martin rgically repaired in the emergency room. Currently, bleeding stopped. 2. Anemia due to acute blood loss from laceration of lower lip. The patient is given blood transfus ion and we will monitor hemoglobin and hematocrit. If hemoglobin drops, then we will consider transf using 1 more unit. Upon discharge, patient will continue ferrous sulfate 325 mg p.o. b.i.d. 3. Hypotension due to blood loss that has resolved after fluid resuscitation and blood transfusion, now patient is hypertensive. 4. Hypertension. We will continue lisinopril 10 mg p.o. b.i.d., Toprol-XL 25 mg p.o. daily and we w ill also rule out orthostatic hypotension. 5. Frequent fall. Etiology uncertain, patient does have full workup done in recent past and all wor kup is unremarkable. Clinically, does not require any more workup at this point, but he will need PT , OT, and possibly gait training. We will monitor on telemetry floor for any kind of arrhythmia. Th e patient may need rehabilitation placement and window caser will be consulted. We will start PT, OT today. 6. Recent urinary tract infection. Though patient does not have any urinary tract infection symptom s, he has finished antibiotic therapy. We will send urine culture again. 7. Diabetes type 2. Continue metformin 1000 mg p.o. b.i.d., insulin as per sliding scale protocol. Diabetic diet will be given. 8. Chronic hepatitis C. Patient had LFT normal. His hepatitis C antibody is positive in the past. 9. History of cocaine abuse in the past, but currently urine drug screen is negative. 10. Deep venous thrombosis prophylaxis. No Lovenox because of bleeding. 11. Gastrointestinal prophylaxis, Pepcid 20 mg p.o. b.i.d. 12. Code status: The patient is FULL CODE. The patient does not have any surrogate decision maker. Disposition plan based on clinical course. The patient may need rehabilitation. We are starting PT, OT. If hemoglobin and hematocrit remained stable, then patient would be medically stable for discha rge. Today, we will stop IV fluid as well.
[2017-07-04] MEDS: Ferrous Sulfate 325 MG TAB PO SCH (16:30)
[2017-07-04 16:35] LABS: Hemoglobin 7.3 g/dL (14.0-18.0)
[2017-07-04] MEDS ORDERED: Lisinopril 10 MG TAB PO SCH (21:00)
[2017-07-04] MEDS: Famotidine 20 MG TAB PO SCH (21:18)
[2017-07-04 22:36] LABS: Hemoglobin 6.5 g/dL (14.0-18.0)
[2017-07-05] MEDS: hydrALAZINE 20 MG/ML VIAL SLOW IVP PRN ×2 (03:38→13:37)
[2017-07-05 04:53] LABS: #Basophils 0.1 thou/uL (0.0-0.2); #Eosinphils 0.2 thou/uL (0.0-0.7); #Lymphocytes 2.2 thou/uL (1.20-3.40); #Monocytes 0.7 thou/uL (0.11-0.59); #Neutrophils 3.8 thou/uL (1.40-6.50); %Basophils 0.8 % (0.0-1.0); %Eosinophils 3.1 % (0.0-10.0); %Lymphocytes 31.7 % (21.0-51.0); %Monocytes 9.4 % (0.0-10.0); %Neutrophils 54.9 % (42.0-75.0); Hemoglobin 7.2 g/dL (14.0-18.0); Mean Corpuscular HGB CONC 33.4 g/dL (32.0-36.0); Mean Corpuscular Hemoglobin 28.9 pg (27.0-31.0); Mean Corpuscular Volume 86.6 fl (80.0-94.0); Mean Platelet Volume 6.3 fL (7.4-10.4); Platelet Count 323 thou/uL (130-400); RBC Distribution Width 12.6 % (11.5-14.5); Red Blood Cell (RBC) Count 2.48 mill/uL (4.70-6.10); White Blood Cell (WBC) Count 6.9 thou/uL (4.8-10.8)
[2017-07-05 04:58] LABS: Anion Gap 8 mmol/L (10-20); Calcium 8.3 mg/dL (7.8-10.44); Carbon Dioxide 25 mmol/L (23-31); Chloride 110 mmol/L (98-107); Potassium 3.8 mmol/L (3.5-5.1); Sodium 139 mmol/L (136-145)
[2017-07-05 05:03] LABS: BUN (Urea Nitrogen) 14 mg/dL (8.4-25.7); Calc. Creatinine Clearance 69 mL/min (70-130); Estimated GFR-MDRD 87; Glucose 103 mg/dL (80-115)
[2017-07-05 10:09] LABS: Hemoglobin 7.3 g/dL (14.0-18.0)
[2017-07-05] MEDS: Famotidine 20 MG TAB PO SCH ×2 (10:32→20:35)
[2017-07-05] MEDS: metFORMIN 500 MG TAB PO SCH ×2 (10:32→17:33)
[2017-07-05] MEDS: Lisinopril 5 MG TAB PO SCH ×2 (10:33→20:35)
[2017-07-05] MEDS: Ferrous Sulfate 325 MG TAB PO SCH ×2 (10:33→17:34)
--- NOTE | 2017-07-05 11:37 | PDOC.PN ---
- Subjective Encounter Start Date: 07/05/17 Encounter Start Time: 09:45 -: old records requested/rev Patient seen and examined. No new complaints. No overnight events - Objective Resuscitation Status: Resuscitation Status FULL:Full Resuscitation MAR Reviewed: Yes Vital Signs & Weight: Vital Signs (12 hours) Temp Pulse Pulse Resp BP BP BP 07/05/17 10:41 98.4 F 80 16 170/83 H 07/05/17 10:33 90 178/90 H 07/05/17 07:47 98.3 F 90 16 07/05/17 03:38 78 07/05/17 03:34 98.0 F 78 20 187/98 H BP Pulse Ox 07/05/17 10:41 07/05/17 10:33 07/05/17 07:47 178/90 H 99 07/05/17 03:38 07/05/17 03:34 98 I&O: 07/04/17 07/05/17 07/06/17 06:59 06:59 06:59 Intake Total 960 0 Output Total 375 Balance 585 0 Result Diagrams: 07/05/17 07:08 07/05/17 04:33 Additional Labs: Accuchecks 07/05/17 07/05/17 07/04/17 10:58 05:18 20:41 POC Glucose 152 H 105 137 H 07/04/17 07/04/17 16:45 10:58 POC Glucose 131 H 120 H EKG Reviewed by me: Yes Phys Exam - Physical Examination Constitutional: NAD HEENT: PERRLA, moist MMs, sclera anicteric Neck: no JVD, supple Respiratory: no wheezing, no rales, no rhonchi Cardiovascular: RRR, no significant murmur, no rub Gastrointestinal: soft, non-tender, no distention, positive bowel sounds Musculoskeletal: no edema, pulses present Neurological: non-focal, normal sensation, moves all 4 limbs Psychiatric: normal affect, A&O x 3 Skin: no rash, normal turgor Dx/Plan (1) Orthostatic hypotension Code(s): I95.1 - ORTHOSTATIC HYPOTENSION Status: Acute (2) Acute blood loss anemia Code(s): D62 - ACUTE POSTHEMORRHAGIC ANEMIA Status: Acute Comment: (3) Laceration of lower lip Code(s): S01.511A - LACERATION WITHOUT FOREIGN BODY OF LIP, INITIAL ENCOUNTER Status: Acute (4) CKD (chronic kidney disease), stage III Status: Chronic (5) HTN (hypertension) Code(s): I10 - ESSENTIAL (PRIMARY) HYPERTENSION Status: Chronic (6) Type 2 diabetes mellitus Status: Chronic - Plan cont current plan of care * transfuse 1 unit PRBC * reduce lisinopril 5 mg po bid * allow permissive hypertension * rehab consult for inpt rehab * medication reviewed as below * symptomatic treatment. Review of Systems - Review of Systems ENT: negative: Ear Pain, Ear Discharge, Nose Pain, Nose Discharge, Nose Congestion, Mouth Pain, Mouth Swelling, Throat Pain, Throat Swelling, Other Respiratory: negative: Cough, Dry, Shortness of Breath, Hemoptysis, SOB with Excertion, Pleuritic Pain, Sputum, Wheezing Cardiovascular: negative: chest pain, palpitations, orthopnea, paroxysmal nocturnal dyspnea, edema, light headedness, other Gastrointestinal: negative: Nausea, Vomiting, Abdominal Pain, Diarrhea, Constipation, Melena, Hematochezia, Other Genitourinary: negative: Dysuria, Frequency, Incontinence, Hematuria, Retention , Other Musculoskeletal: negative: Neck Pain, Shoulder Pain, Arm Pain, Back Pain, Hand Pain, Leg Pain, Foot Pain, Other Skin: negative: Rash, Lesions, Nilo, Bruising, Other - Medications/Allergies Allergies/Adverse Reactions: Allergies Allergy/AdvReac Type Severity Reaction Status Date / Time No Known Allergies Allergy Verified 07/04/17 06:05 Medications: Current Medications Acetaminophen (Tylenol) 650 mg PO Q4H PRN PRN Reason: Headache/Fever or Mild Pain Al Hydroxide/Mg Hydroxide (Maalox) 15 ml PO Q4H PRN PRN Reason: Heartburn or Indigestion Artificial Tears (Tears Naturale) 0 drop EA EYE PRN PRN PRN Reason: Dry Eyes Ascorbic Acid (Vitamin C) 500 mg PO BID-[facility] Dextrose/Water (Dextrose 50%) 25 gm SLOW IVP PRN PRN PRN Reason: Hypoglycemia Famotidine (Pepcid) 20 mg PO BID [facility] Last Admin: 07/05/17 10:32 Dose: 20 mg Ferrous Sulfate (Feosol) 325 mg PO BID-[facility] Last Admin: 07/05/17 10:33 Dose: 325 mg Glucagon (Glucagon) 1 mg IM PRN PRN PRN Reason: Hypoglycemia Guaifenesin (Robitussin Sf) 200 mg PO Q4H PRN PRN Reason: Cough Hydralazine HCl (Apresoline) 10 mg SLOW IVP Q4H PRN PRN Reason: SBP Greater Than 180 Last Admin: 07/05/17 03:38 Dose: 10 mg Dextrose/Water (D5w) 1,000 mls @ 0 mls/hr IV .Q0M PRN; As Directed PRN Reason: Hypoglycemia Insulin Human Regular (Humulin R) 0 units SC .MILD SLIDING SCALE PRN PRN Reason: Mild Correctional Scale Lisinopril (Zestril) 5 mg PO BID [facility] Last Admin: 07/05/17 10:33 Dose: 5 mg Magnesium Hydroxide (Milk Of Magnesium) 30 ml PO DAILYPRN PRN PRN Reason: Constipation Metformin HCl (Glucophage) 1,000 mg PO BID-[facility] Last Admin: 07/05/17 10:32 Dose: 1,000 mg Metoprolol Succinate (Toprol Xl) 25 mg PO 1999 [facility] Last Admin: 07/04/17 16:50 Dose: 25 mg Mineral Oil/White Petrolatum (Eucerin Cream) 0 gm TOP BIDPRN PRN PRN Reason: Dry Skin Ondansetron HCl (Zofran Odt) 4 mg PO Q6H PRN PRN Reason: Nausea/Vomiting Ondansetron HCl (Zofran) 4 mg IVP Q6H PRN PRN Reason: Nausea/Vomiting Phenol (Chloraseptic [place] 180 Ml Bot) 0 ml PO PRN PRN PRN Reason: Sore Throat Senna (Senokot) 2 tab PO HSPRN PRN PRN Reason: Constipation Sodium Chloride (Flush - Normal Saline) 10 ml IVF PRN PRN PRN Reason: Saline Flush Last Admin: 07/04/17 08:50 Dose: 10 ml Sodium Chloride (Biehle Nasal [place] 0.65%) 0 ml EA NARE QIDPRN PRN PRN Reason: Nasal Congestion Temazepam (Restoril) 15 mg PO HSPRN PRN PRN Reason: Insomnia
[2017-07-05] MEDS: Ascorbic Acid 500 mg Chewable Tablet PO SCH (17:33)
[2017-07-06] MEDS: hydrALAZINE 20 MG/ML VIAL SLOW IVP PRN (01:09)
[2017-07-06 04:42] LABS: Hemoglobin 8.4 g/dL (14.0-18.0)
[2017-07-06 07:33] VITALS: TEMP 97.4
[2017-07-06] MEDS: Ascorbic Acid 500 mg Chewable Tablet PO SCH (08:34)
[2017-07-06] MEDS: Ferrous Sulfate 325 MG TAB PO SCH (08:34)
[2017-07-06] MEDS: Famotidine 20 MG TAB PO SCH (08:34)
[2017-07-06] MEDS: Lisinopril 5 MG TAB PO SCH (08:35)
[2017-07-06] MEDS: metFORMIN 500 MG TAB PO SCH (08:35)
[2017-07-06 08:37] VITALS: BP 183/83
--- NOTE | 2017-07-06 08:48 | DIS ---
PRIMARY CARE PHYSICIAN: Dr. Jay Lane DATE OF ADMISSION: 07/04/2017 DATE OF DISCHARGE: 07/06/2017 DISCHARGE DISPOSITION: Home with home health. PRIMARY DISCHARGE DIAGNOSES: 1. Mechanical fall and subsequent laceration of lower lip. 2. Anemia due to acute blood loss, status post 2 unit transfusion. 3. Orthostatic hypotension. SECONDARY DISCHARGE DIAGNOSES: Diabetes type 2, hypertension, CKD stage 3. PRIMARY PROCEDURE/OPERATION: Suturing of laceration of her lower lip. RADIOLOGICAL INVESTIGATION: None. SIGNIFICANT LABORATORY: WBC 6.9, hemoglobin 8.4, platelet 323. INR 1.3. Sodium 139, potassium 3.8, BUN 14, creatinine 1.03, calcium 8.3, random cortisol 8. Urinalysis unremarkable. Urine drug scree n negative. Urine culture negative. DISCHARGE MEDICATIONS: Tylenol 650 mg p.o. q.4 hourly p.r.n., ferrous sulfate 325 mg p.o. b.i.d., li sinopril 10 mg p.o. b.i.d., metformin 1000 mg p.o. b.i.d., Toprol-XL 25 mg p.o. daily. CONTRAINDICATIONS: None. CODE STATUS: FULL CODE. INPATIENT CONSULTANTS: Dr. Damon was primary while in hospital. Sound Team was consulted for medic al comanagement. TEST RESULTS PENDING ON DISCHARGE: None. ALLERGIES: No known drug allergy. DISCHARGE PLAN: Post hospital, the patient will follow up with primary care physician in 1 week. HOSPITAL COURSE: A 67-year-old male with the above-mentioned medical problems who was recently admit maral in hospital for mechanical fall and he had laceration of lower lip which was sutured in the emerg ency room. At that time, he also had acute blood loss anemia and he was discharged home. He had ano ther episode of fall at home and that resulted in arterial bleeding from lower lip which required a s urgical repair in the emergency room. During this admission, he was hypotensive and he lost a signif icant amount of blood. He required a total of 2 units of blood transfusion and fluid resuscitation. He had positive orthostatic vitals. As this patient has frequent falls and that is why we did a PT, OT while in hospital and offered rehab placement. The patient does not want to go to any kind of [facility] and he rather wants to go home. The patient is hemodynamically stable. He will continue all his previous medication. Iron supplemen ts was advised to him. I have seen this patient personally at bedside and examined. Plan of care discussed with him in [facility] today. VITAL SIGNS: Today temperature 97.4, pulse 84, respiratory rate 16, saturation 100% on room air, blo od pressure 156/75, weight 158 pound. GENERAL: The patient is currently alert, awake, no acute distress. HEAD: Normocephalic, atraumatic. EYES: Pupils round, reactive to light. Extraocular muscle intact. ENT: Oropharynx within normal limits. Moist mucous membranes. No oral lesion, no pharyngeal erythe ma, no exudate. NECK: Supple, no JVD, no thyromegaly, no carotid bruit. No jugular venous distention. LUNGS: Clear to auscultation without any rhonchi or rales. CARDIAC: S1, S2 regular without any murmur. ABDOMEN: Soft and benign without any tenderness. EXTREMITIES: No edema. NEUROLOGIC: The patient is alert, oriented x3. Nonfocal neurological examination. No cerebellar si gn. The patient walked with physical therapy very well without any problem. His H&H remained stable. Hi s urine culture remains negative. The patient does not want to go to any kind of placement. If prim omayra team is okay, then the patient can be discharged home. Necessary patient education about orthost atic hypotension and how to prevent fall was discussed with the patient. All review of system reviewed with him and negative. The patient is medically stable for discharge today and we will sign off.
--- NOTE | 2017-07-06 09:16 | PDOC.PN ---
- Subjective Encounter Start Date: 07/06/17 Encounter Start Time: 09:15 Patient seen and examined. No new complaints. No overnight events - Objective Resuscitation Status: Resuscitation Status FULL:Full Resuscitation MAR Reviewed: Yes Vital Signs & Weight: Vital Signs (12 hours) Temp Pulse Resp BP BP BP Pulse Ox 07/06/17 08:35 84 183/83 H 07/06/17 07:33 97.4 F L 84 16 183/80 H 100 07/06/17 04:00 98.5 F 82 20 156/75 H 93 L 07/06/17 01:24 145/70 H 07/06/17 01:09 86 189/91 H 07/06/17 00:15 98.5 F 81 18 188/90 H 97 I&O: 07/05/17 07/06/17 07/07/17 06:59 06:59 06:59 Intake Total 960 350 492 Output Total 375 275 Balance 585 350 217 Result Diagrams: 07/06/17 04:31 07/05/17 04:33 Additional Labs: Accuchecks 07/06/17 07/05/17 07/05/17 06:12 20:35 16:43 POC Glucose 104 109 118 H 07/05/17 10:58 POC Glucose 152 H EKG Reviewed by me: Yes Phys Exam - Physical Examination Constitutional: NAD HEENT: PERRLA, moist MMs, sclera anicteric Neck: no JVD, supple Respiratory: no wheezing, no rales, no rhonchi Cardiovascular: RRR, no significant murmur, no rub Gastrointestinal: soft, non-tender, no distention, positive bowel sounds Musculoskeletal: no edema, pulses present Neurological: non-focal, normal sensation, moves all 4 limbs Psychiatric: normal affect, A&O x 3 Skin: no rash, normal turgor Dx/Plan (1) Orthostatic hypotension Code(s): I95.1 - ORTHOSTATIC HYPOTENSION Status: Acute (2) Acute blood loss anemia Code(s): D62 - ACUTE POSTHEMORRHAGIC ANEMIA Status: Acute Comment: (3) Laceration of lower lip Code(s): S01.511A - LACERATION WITHOUT FOREIGN BODY OF LIP, INITIAL ENCOUNTER Status: Acute (4) CKD (chronic kidney disease), stage III Status: Chronic (5) HTN (hypertension) Code(s): I10 - ESSENTIAL (PRIMARY) HYPERTENSION Status: Chronic (6) Type 2 diabetes mellitus Status: Chronic - Plan cont current plan of care, PT/OT, social media coordinator * pt does not want to go to SNU or rehab * medication reviewed as below * symptomatic treatment * see discharge avril. Review of Systems - Review of Systems ENT: negative: Ear Pain, Ear Discharge, Nose Pain, Nose Discharge, Nose Congestion, Mouth Pain, Mouth Swelling, Throat Pain, Throat Swelling, Other Respiratory: negative: Cough, Dry, Shortness of Breath, Hemoptysis, SOB with Excertion, Pleuritic Pain, Sputum, Wheezing Cardiovascular: negative: chest pain, palpitations, orthopnea, paroxysmal nocturnal dyspnea, edema, light headedness, other Gastrointestinal: negative: Nausea, Vomiting, Abdominal Pain, Diarrhea, Constipation, Melena, Hematochezia, Other Genitourinary: negative: Dysuria, Frequency, Incontinence, Hematuria, Retention , Other Musculoskeletal: negative: Neck Pain, Shoulder Pain, Arm Pain, Back Pain, Hand Pain, Leg Pain, Foot Pain, Other Skin: negative: Rash, Lesions, Nilo, Bruising, Other - Medications/Allergies Allergies/Adverse Reactions: Allergies Allergy/AdvReac Type Severity Reaction Status Date / Time No Known Allergies Allergy Verified 07/04/17 06:05 Medications: Current Medications Acetaminophen (Tylenol) 650 mg PO Q4H PRN PRN Reason: Headache/Fever or Mild Pain Al Hydroxide/Mg Hydroxide (Maalox) 15 ml PO Q4H PRN PRN Reason: Heartburn or Indigestion Artificial Tears (Tears Naturale) 0 drop EA EYE PRN PRN PRN Reason: Dry Eyes Ascorbic Acid (Vitamin C) 500 mg PO BID-[facility] Last Admin: 07/06/17 08:34 Dose: 500 mg Dextrose/Water (Dextrose 50%) 25 gm SLOW IVP PRN PRN PRN Reason: Hypoglycemia Famotidine (Pepcid) 20 mg PO BID [facility] Last Admin: 07/06/17 08:34 Dose: 20 mg Ferrous Sulfate (Feosol) 325 mg PO BID-[facility] Last Admin: 07/06/17 08:34 Dose: 325 mg Glucagon (Glucagon) 1 mg IM PRN PRN PRN Reason: Hypoglycemia Guaifenesin (Robitussin Sf) 200 mg PO Q4H PRN PRN Reason: Cough Hydralazine HCl (Apresoline) 10 mg SLOW IVP Q4H PRN PRN Reason: SBP Greater Than 180 Last Admin: 07/06/17 01:09 Dose: 10 mg Dextrose/Water (D5w) 1,000 mls @ 0 mls/hr IV .Q0M PRN; As Directed PRN Reason: Hypoglycemia Insulin Human Regular (Humulin R) 0 units SC .MILD SLIDING SCALE PRN PRN Reason: Mild Correctional Scale Lisinopril (Zestril) 5 mg PO BID [facility] Last Admin: 07/06/17 08:35 Dose: 5 mg Magnesium Hydroxide (Milk Of Magnesium) 30 ml PO DAILYPRN PRN PRN Reason: Constipation Metformin HCl (Glucophage) 1,000 mg PO BID-[facility] Last Admin: 07/06/17 08:35 Dose: 1,000 mg Metoprolol Succinate (Toprol Xl) 25 mg PO 1999 [facility] Last Admin: 07/05/17 20:35 Dose: 25 mg Mineral Oil/White Petrolatum (Eucerin Cream) 0 gm TOP BIDPRN PRN PRN Reason: Dry Skin Ondansetron HCl (Zofran Odt) 4 mg PO Q6H PRN PRN Reason: Nausea/Vomiting Ondansetron HCl (Zofran) 4 mg IVP Q6H PRN PRN Reason: Nausea/Vomiting Phenol (Chloraseptic [place] 180 Ml Bot) 0 ml PO PRN PRN PRN Reason: Sore Throat Senna (Senokot) 2 tab PO HSPRN PRN PRN Reason: Constipation Sodium Chloride (Flush - Normal Saline) 10 ml IVF PRN PRN PRN Reason: Saline Flush Last Admin: 07/04/17 08:50 Dose: 10 ml Sodium Chloride ([place] Nasal [place] 0.65%) 0 ml EA NARE QIDPRN PRN PRN Reason: Nasal Congestion Temazepam (Restoril) 15 mg PO HSPRN PRN PRN Reason: Insomnia
== END 2017-07-06 12:01 | disposition home health service (06) | DRG 908 ==
LOC: ERS 00:20 → 2SE 01:59 → OBSVTOIN 04:36
PROVIDERS: ADMIT Specialist; ATTEND Specialist
PROC: 03Q Upper Arteries, Repair (ICD-10-PCS; principal; 2017-07-04)
PROC: 0CQ1XZZ Repair Lower Lip, External Approach (ICD-10-PCS; 2017-07-04)
PROC: 30233N1 Transfusion of Nonautologous Red Blood Cells into Peripheral Vein, Percutaneous Approach (ICD-10-PCS; 2017-07-04)
DX: S09.0XXA Injury of blood vessels of head, not elsewhere classified, initial encounter (principal); D62 Acute posthemorrhagic anemia; E11.22 Type 2 diabetes mellitus with diabetic chronic kidney disease; I95.1 Orthostatic hypotension; I12.9 Hypertensive chronic kidney disease with stage 1 through stage 4 chronic kidney disease, or unspecified chronic kidney disease; N18.2 Chronic kidney disease, stage 2 (mild); B18.2 Chronic viral hepatitis C; R29.6 Repeated falls; Z91.14 Patient's other noncompliance with medication regimen; Z79.84 Long term (current) use of oral hypoglycemic drugs; Z79.899 Other long term (current) drug therapy; W18.30XA Fall on same level, unspecified, initial encounter; Y92.009 Unspecified place in unspecified non-institutional (private) residence as the place of occurrence of the external cause
CPT/HCPCS: 12011; 36415; 36416; 36430; 80048; 80053; 80306; 81003; 81015; 82533; 85025; 85610; 85730; 86850; 86900; 86901; 87086; A4216; G0390; G8987-GO-CI; G8988-GO-CI; G8989-GO-CI; J0360; J2001; P9016

== ENCOUNTER 2022-05-28 15:48 | Inpatient (IN) | payer MEDICARE, OTHER ==
[2022-05-28 17:17] LABS: #Basophils 0.1 thou/uL (0.0-0.2); #Eosinphils 0.2 thou/uL (0.0-0.7); #Lymphocytes 1.2 thou/uL (1.20-3.40); #Monocytes 0.4 thou/uL (0.11-0.59); #Neutrophils 3.7 thou/uL (1.40-6.50); %Basophils 1.2 % (0.0-1.0); %Eosinophils 3.6 % (0.0-10.0); %Lymphocytes 21.3 % (21.0-51.0); %Monocytes 7.2 % (0.0-10.0); %Neutrophils 66.8 % (42.0-75.0); Hemoglobin 8.4 g/dL (14.0-18.0); Mean Corpuscular HGB CONC 33.4 g/dL (32.0-36.0); Mean Corpuscular Hemoglobin 27.1 pg (27.0-31.0); Mean Corpuscular Volume 81.2 fl (78.0-98.0); Mean Platelet Volume 6.3 fL (7.4-10.4); Platelet Count 297 10x3/uL (130-400); RBC Distribution Width 13.6 % (11.5-14.5); White Blood Cell (WBC) Count 5.5 10x3/uL (4.8-10.8)
[2022-05-28 17:38] LABS: ALT (SGPT) 23 U/L (8-55); AST (SGOT) 33 U/L (5-34); Albumin 3.6 g/dL (3.4-4.8); Alkaline Phosphatase 52 U/L (40-110); Anion Gap 24 mmol/L (10-20); Bilirubin, Total 0.6 mg/dL (0.2-1.2); Calc. Creatinine Clearance 0 mL/min (70-130); Carbon Dioxide 10 mmol/L (23-31); Chloride 104 mmol/L (98-107); Estimated GFR 2; Globulin 4.5 g/dL (2.4-3.5); Glucose 211 mg/dL (83-110); Potassium 4.7 mmol/L (3.5-5.1); Protein, Total 8.1 g/dL (5.8-8.1); Sodium 133 mmol/L (136-145)
[2022-05-28 17:42] LABS: Calcium 6.2 mg/dL (7.8-10.44)
[2022-05-28 17:52] LABS: BUN (Urea Nitrogen) 133 mg/dL (8.4-25.7)
[2022-05-28] MEDS ORDERED: cefTRIAXone (ROCEPHIN) 1 GM VIAL ONE (17:55)
[2022-05-28 18:14] LABS: Bacteria/HPF 1+ HPF (None Seen); Bilirubin Negative (Negative); Blood, Urine 2+ (Negative); Clarity Turbid (Clear); Glucose, Urine (Dipstick) Normal (Negative); Ketone, Urine Negative (Negative); Leukocyte 500 Leu/uL (Negative); Nitrite Negative (Negative); Protein, Urine (Dipstick) 100 mg/dL (Neg-Trace); Specific Gravity, Urine 1.014 (1.002-1.036); Squamous Epithelial 0-3 HPF (0-3); Urobilinogen Normal mg/dL (Less than 2); WBC/HPF Greater than 50 HPF (0-3); pH, Urine 5.5 (5.0-9.0)
[2022-05-28] MEDS ORDERED: Vancomycin 1 GM/200 ML (FROZEN) BAG ONE (18:25)
[2022-05-28 18:31] LABS: SARS-CoV-2 NAA Rapid Test Not Detected (NotDetected)
[2022-05-28] MEDS ORDERED: Calcium Chloride 1 GM/10 ML Abboject SYRINGE ONE (19:01)
[2022-05-28] MEDS ORDERED: Acetaminophen 325 MG TAB PO PRN (19:21)
[2022-05-28] MEDS ORDERED: Ondansetron PF 4 MG/2 ML Vial IVP PRN (19:21)
[2022-05-28] MEDS ORDERED: HumaLOG 300 UNITS/3 ML VIAL SC PRN ×2 (19:24)
[2022-05-28] MEDS ORDERED: Dextrose 5% in Water 1,000 ML IV PRN (19:24)
[2022-05-28] MEDS ORDERED: Dextrose 50% Abboject 50 ML SYRINGE SLOW IVP PRN (19:24)
[2022-05-28 23:16] LABS: HBSAg Index 0.24 S/CO (0-0.99); Hep B Core Total Ab Non-Reactive (NonReactive); Hep B Core Total Index 0.52 S/CO (0-0.79); Hep B Surf Ag Non-Reactive S/CO (NonReactive)
[2022-05-28 23:17] LABS: HBSAB Concentration 10.75 mIU/mL; Hep C IgG Ab Reflex HepC Qnt (NonReactive)
[2022-05-28 23:18] LABS: Hep B Surf AB Reactive (NonReactive)
[2022-05-28 23:19] LABS: Hep C Index 11.96 S/CO (0-0.79)
[2022-05-29 00:02] VITALS: BMI 25.4
[2022-05-29] MEDS ORDERED: Vancomycin Diaylsis Sliding Scale (Wt 71-99) FS SCH (01:15)
[2022-05-29] MEDS ORDERED: Vancomycin HCl 500 MG in Sodium Chloride 0.9% 100 ML IVPB SCH (02:00)
[2022-05-29 04:13] LABS: %Basophils 1.2 % (0.0-1.0); %Eosinophils 2.3 % (0.0-10.0); %Lymphocytes 21.2 % (21.0-51.0); %Neutrophils 61.3 % (42.0-75.0); Hemoglobin 7.6 g/dL (14.0-18.0); Mean Corpuscular HGB CONC 34.8 g/dL (32.0-36.0); Mean Corpuscular Hemoglobin 27.8 pg (27.0-31.0); Mean Corpuscular Volume 79.8 fl (78.0-98.0); Mean Platelet Volume 6.5 fL (7.4-10.4); Platelet Count 237 10x3/uL (130-400); RBC Distribution Width 13.4 % (11.5-14.5); Red Blood Cell (RBC) Count 2.73 mill/uL (4.70-6.10); White Blood Cell (WBC) Count 5.2 10x3/uL (4.8-10.8)
[2022-05-29 04:14] LABS: #Basophils 0.1 thou/uL (0.0-0.2); #Eosinphils 0.1 thou/uL (0.0-0.7); #Lymphocytes 1.1 thou/uL (1.20-3.40); #Monocytes 0.7 thou/uL (0.11-0.59); #Neutrophils 3.2 thou/uL (1.40-6.50)
[2022-05-29 04:33] LABS: Iron 133 ug/dL (65-175); Iron Binding Capacity, Total 220 mcg/dL (261-462)
[2022-05-29 04:34] LABS: Iron 132 ug/dL (65-175); Iron Binding Capacity, Total 218 mcg/dL (261-462); Phosphorus 6.7 mg/dL (2.3-4.7)
[2022-05-29 04:38] LABS: Anion Gap 20 mmol/L (10-20); BUN (Urea Nitrogen) 89 mg/dL (8.4-25.7); Calc. Creatinine Clearance 6 mL/min (70-130); Carbon Dioxide 14 mmol/L (23-31); Chloride 105 mmol/L (98-107); Estimated GFR 4; Glucose 92 mg/dL (83-110); Potassium 3.4 mmol/L (3.5-5.1); Sodium 136 mmol/L (136-145)
[2022-05-29 04:45] LABS: Calcium 6.3 mg/dL (7.8-10.44)
[2022-05-29 07:31] LABS: Vancomycin, Random 16.9 ug/mL (See Comment)
[2022-05-29 09:11] LABS: Magnesium 1.7 mg/dL (1.6-2.6)
[2022-05-29] MEDS: Calcium Chloride 13.6 MEQ in Sodium Chloride 0.9% 100 ML IVPB SCH ×2 (10:56→12:32)
[2022-05-29] MEDS: Calcium Acetate 667 MG CAP PO SCH ×2 (11:01→17:46)
[2022-05-29] MEDS: EPOETIN ALFA-EPBX (ESRD) 10,000 UNIT/ML VIAL SC SCH (11:09)
[2022-05-29] MEDS ORDERED: Heparin 10,000 UNITS/ 10 ML VIAL ONE (16:01)
[2022-05-29] MEDS ORDERED: Vancomycin HCl 750 MG in Sodium Chloride 0.9% 250 ML 250 ML IVPB SCH (17:00)
[2022-05-29] MEDS ORDERED: cefTRIAXone\\ROCEPHIN 1 GM in Sodium Chloride 0.9% 100 ML IVPB SCH (18:00)
[2022-05-30 04:28] LABS: #Eosinphils 0.1 thou/uL (0.0-0.7); #Lymphocytes 0.9 thou/uL (1.20-3.40); #Monocytes 0.8 thou/uL (0.11-0.59); #Neutrophils 3.6 thou/uL (1.40-6.50); %Basophils 0.6 % (0.0-1.0); %Eosinophils 1.3 % (0.0-10.0); %Lymphocytes 16.3 % (21.0-51.0); %Monocytes 14.8 % (0.0-10.0); %Neutrophils 66.9 % (42.0-75.0); Hemoglobin 8.3 g/dL (14.0-18.0); Mean Corpuscular HGB CONC 33.8 g/dL (32.0-36.0); Mean Corpuscular Hemoglobin 27.4 pg (27.0-31.0); Mean Platelet Volume 6.6 fL (7.4-10.4); Platelet Count 249 10x3/uL (130-400); RBC Distribution Width 13.4 % (11.5-14.5); Red Blood Cell (RBC) Count 3.03 mill/uL (4.70-6.10); White Blood Cell (WBC) Count 5.4 10x3/uL (4.8-10.8)
[2022-05-30 05:01] LABS: Anion Gap 15 mmol/L (10-20); BUN (Urea Nitrogen) 40 mg/dL (8.4-25.7); Calc. Creatinine Clearance 10 mL/min (70-130); Calcium 7.9 mg/dL (7.8-10.44); Carbon Dioxide 23 mmol/L (23-31); Chloride 102 mmol/L (98-107); Estimated GFR 7; Glucose 99 mg/dL (83-110); Potassium 3.7 mmol/L (3.5-5.1); Sodium 136 mmol/L (136-145)
[2022-05-30 07:19] LABS: Vancomycin, Random 21.3 ug/mL (See Comment)
[2022-05-30] MEDS: Calcium Acetate 667 MG CAP PO SCH ×3 (10:37→16:34)
[2022-05-30] MEDS: Ferrous Sulfate 325 MG TAB PO SCH (10:38)
[2022-05-30] MEDS ORDERED: Heparin 10,000 UNITS/ 10 ML VIAL ONE (15:59)
[2022-05-31 06:59] LABS: Hemoglobin 8.5 g/dL (14.0-18.0); Mean Corpuscular HGB CONC 31.7 g/dL (32.0-36.0); Mean Corpuscular Hemoglobin 26.8 pg (27.0-31.0); Mean Corpuscular Volume 84.6 fl (78.0-98.0); Mean Platelet Volume 6.7 fL (7.4-10.4); Platelet Count 259 10x3/uL (130-400); RBC Distribution Width 13.5 % (11.5-14.5); Red Blood Cell (RBC) Count 3.18 mill/uL (4.70-6.10); White Blood Cell (WBC) Count 5.5 10x3/uL (4.8-10.8)
[2022-05-31 07:00] LABS: Anion Gap 15 mmol/L (10-20); BUN (Urea Nitrogen) 17 mg/dL (8.4-25.7); Calc. Creatinine Clearance 14 mL/min (70-130); Calcium 7.9 mg/dL (7.8-10.44); Carbon Dioxide 29 mmol/L (23-31); Chloride 99 mmol/L (98-107); Estimated GFR 12; Glucose 93 mg/dL (83-110); Potassium 3.9 mmol/L (3.5-5.1); Sodium 139 mmol/L (136-145)
[2022-05-31 08:15] LABS: Hypochromia SLIGHT = 6-15 cells (100X) (0-5/hpf); Lymphocytes 10 % (21-51); MDiff Complete? YES; Monocytes 28 % (0-10); Neutrophil 62 % (42-75); Platelet Morphology Comment Appears Adequate; Polychromasia SLIGHT = 2-3 cells (100X) (0-2/hpf)
[2022-05-31] MEDS: Ferrous Sulfate 325 MG TAB PO SCH (08:35)
[2022-05-31] MEDS: Calcitriol 0.25 MCG CAP PO SCH (08:35)
[2022-05-31] MEDS: Calcium Acetate 667 MG CAP PO SCH ×3 (08:35→17:30)
[2022-06-01] MEDS: Calcitriol 0.25 MCG CAP PO SCH (08:41)
[2022-06-01] MEDS: Ferrous Sulfate 325 MG TAB PO SCH (08:41)
[2022-06-01] MEDS: Calcium Acetate 667 MG CAP PO SCH ×3 (08:41→17:59)
[2022-06-01 11:11] LABS: Anion Gap 15 mmol/L (10-20); BUN (Urea Nitrogen) 29 mg/dL (8.4-25.7); Calc. Creatinine Clearance 10 mL/min (70-130); Calcium 8.2 mg/dL (7.8-10.44); Carbon Dioxide 28 mmol/L (23-31); Chloride 97 mmol/L (98-107); Estimated GFR 7; Glucose 107 mg/dL (83-110); Potassium 3.9 mmol/L (3.5-5.1); Sodium 136 mmol/L (136-145)
[2022-06-02 07:25] LABS: Anion Gap 14 mmol/L (10-20); BUN (Urea Nitrogen) 36 mg/dL (8.4-25.7); Calc. Creatinine Clearance 8 mL/min (70-130); Calcium 8.5 mg/dL (7.8-10.44); Carbon Dioxide 30 mmol/L (23-31); Chloride 97 mmol/L (98-107); Estimated GFR 6; Glucose 95 mg/dL (83-110); Potassium 3.8 mmol/L (3.5-5.1); Sodium 137 mmol/L (136-145)
[2022-06-02 07:27] LABS: Hemoglobin 7.8 g/dL (14.0-18.0); Mean Corpuscular Hemoglobin 26.6 pg (27.0-31.0); Mean Corpuscular Volume 86.1 fl (78.0-98.0); Mean Platelet Volume 6.4 fL (7.4-10.4); Platelet Count 302 10x3/uL (130-400); RBC Distribution Width 12.9 % (11.5-14.5); Red Blood Cell (RBC) Count 2.94 mill/uL (4.70-6.10); White Blood Cell (WBC) Count 5.8 10x3/uL (4.8-10.8)
[2022-06-02] MEDS: Ferrous Sulfate 325 MG TAB PO SCH (08:54)
[2022-06-02] MEDS: Calcium Acetate 667 MG CAP PO SCH ×3 (08:54→17:37)
[2022-06-02] MEDS: Calcitriol 0.25 MCG CAP PO SCH (08:54)
[2022-06-02 10:55] LABS: Band 1 % (5-11); Eosinophils 2 % (0-10); Hypochromia SLIGHT = 6-15 cells (100X) (0-5/hpf); Lymphocytes 13 % (21-51); MDiff Complete? YES; Monocytes 13 % (0-10); Neutrophil 71 % (42-75); Platelet Morphology Comment Appears Adequate; Polychromasia SLIGHT = 2-3 cells (100X) (0-2/hpf)
[2022-06-02] MEDS ORDERED: Tuberculin PPD 0.1 ML VIAL I-DERMAL SCH (12:00)
[2022-06-02] MEDS ORDERED: hydrALAZINE 25 MG TAB PO PRN (12:12)
[2022-06-02 14:37] LABS: HCV RNA, log10 6.324 (.); Hep C PCR-Quant 2110000 IU/mL (.)
[2022-06-02] MEDS ORDERED: D5 1/2 NS 500 ML IV SCH (15:15)
[2022-06-02] MEDS ORDERED: Dextrose 5 %-0.45 % NaCl 500 ML IV SCH (15:30)
[2022-06-02] MEDS ORDERED: CEFAZOLIN 2 GM in Sodium Chloride 0.9% 100 ML IVPB SCH (16:45)
[2022-06-02] MEDS ORDERED: Amlodipine 5 MG TAB PO SCH (17:15)
[2022-06-02] MEDS ORDERED: Metoprolol Tartrate 25 MG TAB PO SCH (17:15)
[2022-06-02] MEDS ORDERED: cloNIDine 0.1 MG TAB PO SCH (17:15)
[2022-06-02] MEDS ORDERED: Labetalol HCl 100 MG/20 ML VIAL SLOW IVP PRN (17:16)
[2022-06-03 07:22] LABS: Hemoglobin 8.1 g/dL (14.0-18.0); Mean Corpuscular HGB CONC 30.7 g/dL (32.0-36.0); Mean Corpuscular Hemoglobin 26.9 pg (27.0-31.0); Mean Corpuscular Volume 87.4 fl (78.0-98.0); Mean Platelet Volume 6.2 fL (7.4-10.4); Platelet Count 294 10x3/uL (130-400); Red Blood Cell (RBC) Count 3.03 mill/uL (4.70-6.10); White Blood Cell (WBC) Count 4.8 10x3/uL (4.8-10.8)
[2022-06-03 07:41] LABS: Anion Gap 12 mmol/L (10-20); BUN (Urea Nitrogen) 17 mg/dL (8.4-25.7); Calc. Creatinine Clearance 14 mL/min (70-130); Calcium 8.5 mg/dL (7.8-10.44); Carbon Dioxide 31 mmol/L (23-31); Chloride 96 mmol/L (98-107); Estimated GFR 11; Glucose 102 mg/dL (83-110); Potassium 4.1 mmol/L (3.5-5.1); Sodium 135 mmol/L (136-145)
[2022-06-03] MEDS: Amlodipine 5 MG TAB PO SCH (08:15)
[2022-06-03] MEDS: Calcium Acetate 667 MG CAP PO SCH ×3 (08:15→16:18)
[2022-06-03] MEDS: Ferrous Sulfate 325 MG TAB PO SCH (08:16)
[2022-06-03] MEDS: cloNIDine 0.1 MG TAB PO SCH ×2 (08:16→20:58)
[2022-06-03] MEDS: Calcitriol 0.25 MCG CAP PO SCH (08:21)
[2022-06-03] MEDS: Metoprolol Tartrate 25 MG TAB PO SCH ×2 (08:21→20:58)
[2022-06-03 09:24] LABS: Eosinophils 3 % (0-10); Hypochromia SLIGHT = 6-15 cells (100X) (0-5/hpf); Lymphocytes 16 % (21-51); MDiff Complete? YES; Metamyelocyte 1 % (0-0); Monocytes 15 % (0-10); Neutrophil 65 % (42-75); Platelet Morphology Comment Appears Adequate; Polychromasia SLIGHT = 2-3 cells (100X) (0-2/hpf)
[2022-06-03] MEDS ORDERED: PROPOFOL 40 ML ONE (14:43)
[2022-06-03] MEDS ORDERED: fentaNYL PF 100 MCG/2 ML SYRINGE ONE (14:43)
[2022-06-03] MEDS ORDERED: Bupivacaine/Epinephrine 0.25% 30 ML VIAL ONE (14:44)
[2022-06-03] MEDS ORDERED: Heparin 10,000 UNITS/ 10 ML VIAL ONE (14:44)
[2022-06-03] MEDS ORDERED: Lidocaine 2% PF 5 ML VIAL ONE (14:44)
[2022-06-03] MEDS ORDERED: PHENYLEPHRINE-NS 100 MCG/ML 10 ML SYRINGE ONE (14:55)
[2022-06-03] MEDS ORDERED: Sodium Chloride 0.9% 100 ML ONE (14:56)
[2022-06-03] MEDS ORDERED: CEFAZOLIN 2 GM VIAL ONE (14:56)
[2022-06-03] MEDS ORDERED: PROPOFOL 200 MG/20 ML VIAL ONE (15:12)
[2022-06-03] MEDS ORDERED: Ondansetron HCl/PF 4 MG/2 ML Vial IVP PRN (15:28)
[2022-06-03] MEDS ORDERED: Promethazine HCl 25 MG/ML VIAL IM PRN (15:28)
[2022-06-04] MEDS: Calcium Acetate 667 MG CAP PO SCH ×3 (08:00→17:53)
[2022-06-04] MEDS: Ferrous Sulfate 325 MG TAB PO SCH (14:18)
[2022-06-04] MEDS: Calcitriol 0.25 MCG CAP PO SCH (14:18)
[2022-06-04] MEDS: Metoprolol Tartrate 25 MG TAB PO SCH ×2 (14:18→20:53)
[2022-06-04] MEDS: cloNIDine 0.1 MG TAB PO SCH ×2 (14:21→20:53)
[2022-06-04] MEDS: Amlodipine 5 MG TAB PO SCH (14:21)
[2022-06-04] MEDS: Heparin 5,000 UNITS/ML VIAL SC SCH (20:54)
[2022-06-05] MEDS: cloNIDine 0.1 MG TAB PO SCH ×2 (08:21→20:18)
[2022-06-05] MEDS: Calcium Acetate 667 MG CAP PO SCH ×3 (08:21→18:04)
[2022-06-05] MEDS: Ferrous Sulfate 325 MG TAB PO SCH (08:21)
[2022-06-05] MEDS: Calcitriol 0.25 MCG CAP PO SCH (08:21)
[2022-06-05] MEDS: Metoprolol Tartrate 25 MG TAB PO SCH ×2 (08:22→20:18)
[2022-06-05] MEDS: Heparin 5,000 UNITS/ML VIAL SC SCH ×2 (08:22→20:19)
[2022-06-05] MEDS: Amlodipine 5 MG TAB PO SCH (08:22)
[2022-06-05 08:49] LABS: Anion Gap 12 mmol/L (10-20); BUN (Urea Nitrogen) 19 mg/dL (8.4-25.7); Calc. Creatinine Clearance 15 mL/min (70-130); Calcium 8.4 mg/dL (7.8-10.44); Carbon Dioxide 29 mmol/L (23-31); Chloride 98 mmol/L (98-107); Estimated GFR 12; Glucose 119 mg/dL (83-110); Potassium 3.9 mmol/L (3.5-5.1); Sodium 135 mmol/L (136-145)
[2022-06-05] MEDS: EPOETIN ALFA-EPBX (ESRD) 10,000 UNIT/ML VIAL SC SCH (12:27)
[2022-06-05 13:56] LABS: Eosinophils 3 % (0-10); Hemoglobin 7.8 g/dL (14.0-18.0); Lymphocytes 19 % (21-51); MDiff Complete? YES; Mean Corpuscular HGB CONC 30.3 g/dL (32.0-36.0); Mean Corpuscular Hemoglobin 27.1 pg (27.0-31.0); Mean Corpuscular Volume 89.3 fl (78.0-98.0); Mean Platelet Volume 6.3 fL (7.4-10.4); Monocytes 18 % (0-10); Neutrophil 60 % (42-75); Ovalocytes SLIGHT = 2-5 cells (100X) (0-1/hpf); Platelet Count 273 10x3/uL (130-400); Platelet Morphology Comment Appears Adequate; Polychromasia SLIGHT = 2-3 cells (100X) (0-2/hpf); RBC Distribution Width 12.9 % (11.5-14.5); Red Blood Cell (RBC) Count 2.87 mill/uL (4.70-6.10); Small Platelets SLIGHT; White Blood Cell (WBC) Count 4.2 10x3/uL (4.8-10.8)
[2022-06-06] MEDS: Metoprolol Tartrate 25 MG TAB PO SCH ×2 (08:17→20:32)
[2022-06-06] MEDS: cloNIDine 0.1 MG TAB PO SCH ×2 (08:18→20:31)
[2022-06-06] MEDS: Amlodipine 5 MG TAB PO SCH (08:18)
[2022-06-06] MEDS: Calcitriol 0.25 MCG CAP PO SCH (08:19)
[2022-06-06] MEDS: Ferrous Sulfate 325 MG TAB PO SCH (08:19)
[2022-06-06] MEDS: Calcium Acetate 667 MG CAP PO SCH ×3 (08:19→16:31)
[2022-06-06] MEDS: Heparin 5,000 UNITS/ML VIAL SC SCH ×2 (08:19→20:32)
[2022-06-06 08:33] LABS: Anion Gap 13 mmol/L (10-20); BUN (Urea Nitrogen) 33 mg/dL (8.4-25.7); Calc. Creatinine Clearance 11 mL/min (70-130); Calcium 8.8 mg/dL (7.8-10.44); Carbon Dioxide 28 mmol/L (23-31); Chloride 98 mmol/L (98-107); Estimated GFR 8; Glucose 110 mg/dL (83-110); Potassium 4.3 mmol/L (3.5-5.1); Sodium 135 mmol/L (136-145)
[2022-06-06] MEDS ORDERED: Heparin 10,000 UNITS/ 10 ML VIAL ONE (08:57)
[2022-06-06] MEDS ORDERED: Amlodipine 10 MG TAB PO SCH (10:45)
[2022-06-06] MEDS: Artificial Tear Sol 15 ML BOT EA EYE PRN (20:57)
[2022-06-07] MEDS: Artificial Tear Sol 15 ML BOT EA EYE PRN (06:14)
[2022-06-07 07:51] LABS: ALT (SGPT) Less than 7 U/L (8-55); AST (SGOT) 29 U/L (5-34); Albumin 3.3 g/dL (3.4-4.8); Alkaline Phosphatase 46 U/L (40-110); Anion Gap 12 mmol/L (10-20); BUN (Urea Nitrogen) 22 mg/dL (8.4-25.7); Bilirubin, Total 0.3 mg/dL (0.2-1.2); Calc. Creatinine Clearance 16 mL/min (70-130); Calcium 8.6 mg/dL (7.8-10.44); Carbon Dioxide 28 mmol/L (23-31); Chloride 96 mmol/L (98-107); Estimated GFR 14; Glucose 125 mg/dL (83-110); Potassium 3.9 mmol/L (3.5-5.1); Protein, Total 7.3 g/dL (5.8-8.1); Sodium 132 mmol/L (136-145)
[2022-06-07 08:29] LABS: Band 5 % (5-11); Eosinophils 4 % (0-10); Hemoglobin 7.9 g/dL (14.0-18.0); Hypochromia SLIGHT = 6-15 cells (100X) (0-5/hpf); Lymphocytes 14 % (21-51); MDiff Complete? YES; Mean Corpuscular HGB CONC 30.4 g/dL (32.0-36.0); Mean Corpuscular Volume 88.8 fl (78.0-98.0); Monocytes 12 % (0-10); Neutrophil 62 % (42-75); Platelet Count 287 10x3/uL (130-400); Platelet Morphology Comment Appears Adequate; Polychromasia SLIGHT = 2-3 cells (100X) (0-2/hpf); Reactive Lymphocytes 3 % (0-10); Red Blood Cell (RBC) Count 2.92 mill/uL (4.70-6.10); Target Cells SLIGHT = 2-5 cells (100X) (0-1/hpf); White Blood Cell (WBC) Count 4.6 10x3/uL (4.8-10.8)
[2022-06-07] MEDS: Metoprolol Tartrate 25 MG TAB PO SCH ×2 (08:39→20:32)
[2022-06-07] MEDS: Ferrous Sulfate 325 MG TAB PO SCH (08:39)
[2022-06-07] MEDS: Heparin 5,000 UNITS/ML VIAL SC SCH ×2 (08:40→20:32)
[2022-06-07] MEDS: Calcitriol 0.25 MCG CAP PO SCH (08:40)
[2022-06-07] MEDS: Amlodipine 10 MG TAB PO SCH (08:40)
[2022-06-07] MEDS: cloNIDine 0.1 MG TAB PO SCH ×2 (08:40→20:32)
[2022-06-07] MEDS: Calcium Acetate 667 MG CAP PO SCH ×3 (08:40→17:03)
[2022-06-07] MEDS ORDERED: hydrOXYzine 25 MG TAB PO PRN (15:49)
[2022-06-08 06:12] LABS: Hemoglobin 8.3 g/dL (14.0-18.0); Mean Corpuscular HGB CONC 30.1 g/dL (32.0-36.0); Mean Corpuscular Hemoglobin 26.7 pg (27.0-31.0); Mean Corpuscular Volume 88.6 fl (78.0-98.0); Mean Platelet Volume 6.3 fL (7.4-10.4); Platelet Count 327 10x3/uL (130-400); Red Blood Cell (RBC) Count 3.12 mill/uL (4.70-6.10); White Blood Cell (WBC) Count 6.1 10x3/uL (4.8-10.8)
[2022-06-08 06:53] LABS: Eosinophils 2 % (0-10); Lymphocytes 26 % (21-51); MDiff Complete? YES; Monocytes 10 % (0-10); Neutrophil 62 % (42-75); Platelet Morphology Comment Appears Adequate; Polychromasia SLIGHT = 2-3 cells (100X) (0-2/hpf)
[2022-06-08] MEDS: Calcitriol 0.25 MCG CAP PO SCH (09:27)
[2022-06-08] MEDS: Heparin 5,000 UNITS/ML VIAL SC SCH (09:27)
[2022-06-08] MEDS: Metoprolol Tartrate 25 MG TAB PO SCH (09:27)
[2022-06-08] MEDS: Ferrous Sulfate 325 MG TAB PO SCH (09:27)
[2022-06-08] MEDS: Calcium Acetate 667 MG CAP PO SCH ×3 (09:27→16:39)
[2022-06-08] MEDS: Amlodipine 10 MG TAB PO SCH (09:27)
[2022-06-08] MEDS: cloNIDine 0.1 MG TAB PO SCH (09:27)
[2022-06-08] MEDS ORDERED: Heparin 10,000 UNITS/ 10 ML VIAL ONE (11:04)
[2022-06-08 16:27] VITALS: BP 133/65; TEMP 98.2
== END 2022-06-08 17:32 | DRG 673 ==
LOC: ERS 15:48 → 2NO 17:38 → T4-A 05-30 23:42
PROVIDERS: ADMIT Internal Medicine; ATTEND Hospitalist
PROC: 5A1D70Z Performance of Urinary Filtration, Intermittent, Less than 6 Hours Per Day (ICD-10-PCS; 2022-05-28)
PROC: 02HV33Z Insertion of Infusion Device into Superior Vena Cava, Percutaneous Approach (ICD-10-PCS; 2022-05-28)
PROC: 0JH63XZ Insertion of Tunneled Vascular Access Device into Chest Subcutaneous Tissue and Fascia, Percutaneous Approach (ICD-10-PCS; principal; 2022-06-03)
PROC: 02HV33Z Insertion of Infusion Device into Superior Vena Cava, Percutaneous Approach (ICD-10-PCS; 2022-06-03)
PROC: B548ZZA Ultrasonography of Superior Vena Cava, Guidance (ICD-10-PCS; 2022-06-03)
PROC: B5181ZA Fluoroscopy of Superior Vena Cava using Low Osmolar Contrast, Guidance (ICD-10-PCS; 2022-06-03)
DX: I12.0 Hypertensive chronic kidney disease with stage 5 chronic kidney disease or end stage renal disease (principal); N18.6 End stage renal disease; N17.9 Acute kidney failure, unspecified; E27.40 Unspecified adrenocortical insufficiency; E87.20 Acidosis, unspecified; N30.00 Acute cystitis without hematuria; N25.81 Secondary hyperparathyroidism of renal origin; E11.22 Type 2 diabetes mellitus with diabetic chronic kidney disease; D63.1 Anemia in chronic kidney disease; E78.5 Hyperlipidemia, unspecified; M06.9 Rheumatoid arthritis, unspecified; N40.0 Benign prostatic hyperplasia without lower urinary tract symptoms; B19.20 Unspecified viral hepatitis C without hepatic coma; E83.51 Hypocalcemia; R53.1 Weakness; E83.39 Other disorders of phosphorus metabolism; N25.0 Renal osteodystrophy; D63.8 Anemia in other chronic diseases classified elsewhere; Z79.899 Other long term (current) drug therapy; Z91.81 History of falling; Z79.84 Long term (current) use of oral hypoglycemic drugs; Z82.49 Family history of ischemic heart disease and other diseases of the circulatory system; Z87.891 Personal history of nicotine dependence; Z20.822 Contact with and (suspected) exposure to COVID-19; Z98.41 Cataract extraction status, right eye; Z98.42 Cataract extraction status, left eye
CPT/HCPCS: 36415; 36416; 36556; 71045; 76770; 80048; 80053; 80202; 81003; 81015; 82550; 83540; 83550; 83605; 83735; 83880; 83970; 84100; 85025; 86580; 86704; 86850; 86900; 86901; 87040; 87086; 87522; 90935; 93005; 93010; 93306; 96365; 96366; 96367; C1752; G0257; J0696; J1644; J2001; J2704; J3370; J3370-JW; J3490; J7042; J7050; Q5105; U0002